=== PATIENT | male | born 1990 | race Caucasian/White ===

== ENCOUNTER 2018-11-10 18:58 | Emergency (ER) | payer MEDICAID ==
[2018-11-10] MEDS ORDERED: Levofloxacin 500 MG Tab PO ONE (19:53)
[2018-11-10] MEDS ORDERED: traMADol 50 MG Tab PO ONE (19:53)
--- NOTE | 2018-11-10 19:58 | EDM.PDOC ---
ED HPI GENERAL MEDICAL PROBLEM - General Chief Complaint: Lower Extremity Injury/Pain Stated Complaint: SORE ON L FOOT Time Seen by Provider: 11/10/18 19:36 Source of Information: Reports: Patient History Limitations: Reports: No Limitations - History of Present Illness INITIAL COMMENTS - FREE TEXT/NARRATIVE: Ector comes to [facility] ED with a painful L foot. He is a Type I DM who developed a callous overlying the 5th MTP pad that earlier this month became tender and swollen. The provider in [place] dispensed Keflex 500 mg tid and soaks, but the tenderness and drainage have not subsided. He is now relocated to [place], and requesting managment. Right Feet Pain Score (Numeric/FACES): 9 - Related Data Allergies Allergy/AdvReac Type Severity Reaction Status Date / Time amoxicillin [Amoxicillin] Allergy Hives Verified 11/10/18 19:16 Home Meds: Home Meds Insulin NPH/Insulin Reg,Human [Novolin 70-30] 43 units SUBCUT BEDTIME 11/10/18 [ History] Insulin NPH/Insulin Reg,Human [Novolin 70-30] 45 units SUBCUT DAILY 11/10/18 [ History] Rivaroxaban [Xarelto] 20 mg PO DAILY 11/10/18 [History] Past Medical History HEENT History: Reports: Other (See Below) Other HEENT History: [place] teeth removed. Respiratory History: Reports: PE Gastrointestinal History: Reports: Other (See Below) Other Gastrointestinal History: Gastric reflux. Musculoskeletal History: Reports: Other (See Below) Other Musculoskeletal History: Prior wrist fracture. Right knee problems. Psychiatric History: Reports: Depression, Other (See Below) Other Psychiatric History: Tylenol overdose. Endocrine/Metabolic History: Reports: IDDM - Past Surgical History Musculoskeletal Surgical History: Reports: Other (See Below) Other Musculoskeletal Surgeries/Procedures:: amputation of right 5th toe Social & Family History - Tobacco Use Smoking Status *Q: Never Smoker - Caffeine Use Caffeine Use: Reports: Soda - Recreational Drug Use Recreational Drug Use: No - Living Situation & Occupation Living situation: Reports: Single Occupation: Disabled Review of Systems - Review of Systems Review Of Systems: ROS reveals no pertinent complaints other than HPI. ED EXAM, GENERAL - Physical Exam Exam: See Below Exam Limited By: No Limitations General Appearance: Alert, WD/WN, Anxious, Mild Distress Head: Normocephalic Neck: Normal Inspection, Supple, Non-Tender, Full Range of Motion Respiratory/Chest: Lungs Clear, Normal Breath Sounds Cardiovascular: Regular Rate, Rhythm, No Murmur GI/Abdominal: Normal Bowel Sounds, Soft, Non-Tender, No Organomegaly, No Distention, No Mass (Male) Exam: Deferred Rectal (Males) Exam: Deferred Back Exam: Normal Inspection Extremities: Redness (L foot: mild swelling in proximity to the MTP pad of 5th toe revealing a callous with some central drainage, WC obtained. There is exquisite tenderness to any pressure. ) Neurological: Alert, Oriented, CN II-XII Intact, Normal Cognition, No Motor/ Sensory Deficits Psychiatric: Normal Affect, Anxious Skin Exam: Warm, Dry, Other (callous L foot with suspected trophic ulcer) Lymphatic: No Adenopathy Course - Vital Signs Text/Narrative:: Ector remained stable at the [facility] ED. Last Recorded V/S: Last Vital Signs Temp 36.7 C 11/10/18 19:15 Pulse Resp 17 11/10/18 19:15 BP 127/87 11/10/18 19:15 Pulse Ox 99 11/10/18 19:15 - Orders/Labs/Meds Orders: Active Orders 24 hr Category Date Time Status CULTURE ROUTINE + SMEAR [RM] Stat Lab 11/10/18 19:52 Ordered Meds: Medications Discontinued Medications Generic Name Dose Route Start Last Admin Trade Name Triston PRN Reason Stop Dose Admin Levofloxacin 500 mg 11/10/18 19:53 11/10/18 20:13 Levaquin PO 11/10/18 19:54 500 mg ONETIME ONE Administration Tramadol HCl 50 mg 11/10/18 19:53 11/10/18 20:12 Ultram PO 11/10/18 19:54 50 mg ONETIME ONE Administration Departure - Departure Time of Disposition: 20:10 Disposition: Home, Self-Care 01 Condition: Fair Clinical Impression: Cellulitis of left foot excluding toes - Discharge Information *PRESCRIPTION DRUG MONITORING PROGRAM REVIEWED*: Not Applicable *COPY OF PRESCRIPTION DRUG MONITORING REPORT IN PATIENT RAFIQ: Not Applicable Referrals: David Aburto MD [Primary Care Provider] - Forms: ED Department Discharge Additional Instructions: Soak foot in hot soapy water tonight for at least 30 minutes and then apply dressing. Repeat soak in a.m. and get in to see a surgeon tomorrow either at [facility] (Dr. Mcmillan) or at [facility] (Dr. Dixon or Dr. Stevenson). - Problem List & Annotations (1) Cellulitis of left foot excluding toes SNOMED Code(s): 463977313 Code(s): L03.116 - CELLULITIS OF LEFT LOWER LIMB Status: Acute Current Visit: Yes Annotation/Comment:: I administered Levaquin 500 mg tab, hold Keflex, and see surgeon for debridement of callous tomorrow for suspected trophic ulceration. I also administered Tramadol 50 mg po for pain. - Problem List Review Problem List Initiated/Reviewed/Updated: Yes - My Orders Last 24 Hours: My Active Orders 11/10/18 19:52 CULTURE ROUTINE + SMEAR [RM] Stat - Assessment/Plan Last 24 Hours: My Active Orders 11/10/18 19:52 CULTURE ROUTINE + SMEAR [RM] Stat Plan: Follow up with surgeon tomorrow.
[2018-11-10 23:33] VITALS: BP 124/80
== END 2018-11-10 20:15 | disposition home or self-care (01) ==
LOC: FB.ED 18:58
DX: L03.116 Cellulitis of left lower limb (principal); E11.9 Type 2 diabetes mellitus without complications; F32.9 Major depressive disorder, single episode, unspecified; Z79.4 Long term (current) use of insulin; Z79.899 Other long term (current) drug therapy; Z88.1 Allergy status to other antibiotic agents
CPT/HCPCS: 87070; 87077; 87186; 87205; 99283; A9270-GY

== ENCOUNTER 2018-12-30 21:28 | Observation (INO) | payer MEDICAID ==
--- NOTE | 2018-12-30 22:59 | EDM.PDOC ---
ED HPI GENERAL MEDICAL PROBLEM - General Chief Complaint: Lower Extremity Injury/Pain Stated Complaint: TOE INFECTION Time Seen by Provider: 12/30/18 22:45 Source of Information: Reports: Patient History Limitations: Reports: No Limitations - History of Present Illness INITIAL COMMENTS - FREE TEXT/NARRATIVE: 28-year-old male who reports that he caught the toenail of the right fifth toe on his sock and avulsed the toenail 2 days ago. Since that time he has had increased pain, increased swelling and redness in the toe. Today he had drainage of pus from under the toenail. He rates his pain as an 10/10. It is a sharp, aching and throbbing pain. He has had no nausea or vomiting. But he has had a subjective fever. He reports his blood sugar was morning was 180-190. He has been able to eat and drink normally. He is having no trouble breathing. While he was in the emergency department, he developed advancing on the top of the foot to his right lower leg just above the ankle. There are no other associated signs or symptoms. There are no other modifying factors. 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) (Nothing) right little toe Pain Score (Numeric/FACES): 8 - Related Data Allergies Allergy/AdvReac Type Severity Reaction Status Date / Time amoxicillin [Amoxicillin] Allergy Hives Verified 11/10/18 19:16 Home Meds: Home Meds Admelog Solostar ASDIRECTED 12/30/18 [History] Insulin Glargine,Hum.Rec.Anlog [Jacquelinaglbri Zheng U-100] 25 unit SQ BID 12/30/18 [History] Past Medical History Respiratory History: Reports: PE (In past, not on anticoagulation at present.) Gastrointestinal History: Reports: GERD Musculoskeletal History: Reports: Other (See Below) Other Musculoskeletal History: Prior wrist fracture. Right knee problems. Psychiatric History: Reports: Anxiety, Depression, Other (See Below) Other Psychiatric History: Tylenol overdose. Endocrine/Metabolic History: Reports: IDDM - Past Surgical History HEENT Surgical History: Reports: Oral Surgery ([place] teeth extraction) Musculoskeletal Surgical History: Reports: Other (See Below) Other Musculoskeletal Surgeries/Procedures:: amputation of left 5th toe Social & Family History - Tobacco Use Smoking Status *Q: Unknown Ever Smoked (Nonsmoker) - Caffeine Use Caffeine Use: Reports: Soda - Alcohol Use Alcohol Use History: Yes Alcohol Use Frequency: Rarely - Living Situation & Occupation Living situation: Reports: Single Occupation: Disabled Social History Comment: Recently moved back to [place]. He lives with a roommate. He is here with his mother. Review of Systems - Review of Systems Review Of Systems: See Below Constitutional: Reports: Fever Eyes: Reports: No Symptoms Ears: Reports: No Symptoms Nose: Reports: No Symptoms Mouth/Throat: Reports: No Symptoms Respiratory: Reports: No Symptoms Cardiovascular: Reports: No Symptoms GI/Abdominal: Reports: No Symptoms Genitourinary: Reports: No Symptoms Musculoskeletal: Reports: Other (Right fifth toe pain) Skin: Reports: Erythema (Right fifth toe with pus from avulsed nail area. The patient has erythema to the top of his right foot) Neurological: Reports: No Symptoms Psychiatric: Reports: No Symptoms ED EXAM, GENERAL - Physical Exam Exam: See Below Exam Limited By: No Limitations General Appearance: Alert, WD/WN, Moderate Distress Eye Exam: Bilateral Eye: EOMI, Normal Inspection, PERRL Ears: Normal External Exam, Hearing Grossly Normal Nose: Normal Inspection, Normal Mucosa Throat/Mouth: Normal Inspection, Normal Oropharynx, Normal Voice, No Airway Compromise Head: Atraumatic, Normocephalic Neck: Normal Inspection, Supple, Non-Tender, Full Range of Motion Respiratory/Chest: No Respiratory Distress, Lungs Clear, Normal Breath Sounds, No Accessory Muscle Use, Chest Non-Tender Cardiovascular: Normal Peripheral Pulses, No Edema, No JVD, Tachycardia (Mild) Peripheral Pulses: 2+: Radial (L), Radial (R), Dorsalis Pedis (L), Dorsalis Pedis (R) GI/Abdominal: Normal Bowel Sounds, Soft, Non-Tender, No Distention Back Exam: Normal Inspection Extremities: Normal Range of Motion, Normal Capillary Refill, Redness (With purulence from avulsed right fifth toenail) Neurological: Alert, Oriented, CN II-XII Intact, Normal Cognition, No Motor/ Sensory Deficits Psychiatric: Normal Affect Skin Exam: Warm, Dry, Erythema (And lymphangitic streak emanating from a fifth toe and going up top of foot to just above go.), Other (The left great toe also has some erythema and mild bloody discharge from the medial aspect of the toe nail area. No advancing cellulitis here.) Course - Vital Signs Last Recorded V/S: Last Vital Signs Temp 37.2 C 12/30/18 21:50 Pulse 107 H 12/30/18 21:50 Resp 20 12/30/18 21:50 BP 140/89 12/30/18 21:50 Pulse Ox 99 12/30/18 21:50 - Orders/Labs/Meds Orders: Active Orders 24 hr Category Date Time Status Patient Status Manage Transfer [TRANSFER] Routine ADT 12/31/18 00:16 Active Intake and Output [RC] QSHIFT Care 12/31/18 00:19 Active Pulse Oximetry [RC] PRN Care 12/31/18 00:19 Active Up ad Hilda [RC] ASDIRECTED Care 12/31/18 00:18 Active VTE/DVT Education [RC] Click to Edit Care 12/31/18 00:19 Active Vital Signs [RC] Q4H Care 12/31/18 00:19 Active Heart Healthy Diet [DIET] Diet 12/31/18 Breakfast Active Foot Comp Min 3V Rt [CR] Stat Exams 12/30/18 22:58 Taken BASIC METABOLIC PANEL,BMP [CHEM] AM Lab 12/31/18 05:11 Ordered CBC WITH AUTO DIFF [HEME] AM Lab 12/31/18 05:11 Ordered CULTURE BLOOD [BC] Urgent Lab 12/31/18 00:25 Received CULTURE BLOOD [BC] Urgent Lab 12/31/18 00:30 Received CULTURE ROUTINE + SMEAR [RM] Stat Lab 12/31/18 00:09 Ordered Acetaminophen/HYDROcodone [[place] 325-7.5 MG] Med 12/31/18 00:18 Active 1 tab PO Q4H PRN Enoxaparin [Lovenox] Med 12/31/18 00:30 Active 40 mg SUBCUT Q24H Sodium Chloride 0.9% [Saline Flush] Med 12/31/18 00:10 Active 10 ml FLUSH ASDIRECTED PRN ceFAZolin [Ancef] 2 gm Med 12/31/18 00:15 Active Premix Bag 1 bag IV Q8H Blood Culture x2 Reflex Set [OM.PC] Urgent Oth 12/31/18 00:10 Ordered DVT/VTE Prophylaxis Reflex [OM.PC] Per Unit Routine Oth 12/31/18 00:19 Ordered Peripheral IV Insertion Adult [OM.PC] Routine Oth 12/31/18 00:10 Ordered Resuscitation Status Routine Resus Stat 12/31/18 00:18 Ordered Medication Orders Hydrocodone Bitart/Acetaminophen ([place] 325-7.5 Mg) 1 tab PO Q4H PRN PRN Reason: Moderate pain Enoxaparin Sodium (Lovenox) 40 mg SUBCUT Q24H [facility] Cefazolin Sodium/Dextrose 2 gm (/ Premix) 50 mls @ 100 mls/hr IV Q8H [facility] Insulin Human Lispro (Humalog) 0 unit SUBCUT QID [facility]; Protocol Sodium Chloride (Saline Flush) 10 ml FLUSH ASDIRECTED PRN PRN Reason: Keep Vein Open Labs: Laboratory Tests 12/30/18 12/30/18 12/30/18 Range/Units 23:11 23:11 23:11 WBC 10.6 (4.5-12.0) X10-3/uL RBC 4.91 (4.30-5.75) x10(6)uL Hgb 15.0 (13.5-17.8) g/dL Hct 43.8 (30.0-51.3) % MCV 89.2 (80-96) fL MCH 30.5 (27.7-33.6) pg MCHC 34.1 (32.2-35.4) g/dL RDW 12.3 (11.5-15.5) % Plt Count 209 (125-369) X10(3)uL MPV 8.6 (7.4-10.4) fL Neut % (Auto) 73.9 (46-82) % Lymph % (Auto) 16.4 (13-37) % [place] % (Auto) 6.5 (4-12) % Eos % (Auto) 2 (1.0-5.0) % Baso % (Auto) 1 (0-2) % Neut # (Auto) 7.9 (1.6-8.3) # Lymph # (Auto) 1.7 (0.6-5.0) # [place] # (Auto) 0.7 (0.0-1.3) # Eos # (Auto) 0.2 (0.0-0.8) # Baso # (Auto) 0.1 (0.0-0.2) # Sodium 137 (135-145) mmol/L Potassium 4.0 (3.5-5.3) mmol/L Chloride 100 (100-110) mmol/L Carbon Dioxide 27 (21-32) mmol/L BUN 15 (7-18) mg/dL Creatinine 0.8 (0.70-1.30) mg/dL Est Cr Clr Drug Dosing 135.38 mL/min Estimated GFR (MDRD) > 60 (>60) BUN/Creatinine Ratio 18.8 (9-20) Glucose 442 H* (80-116) mg/dL Calcium 9.3 (8.6-10.2) mg/dL C-Reactive Protein 14.8 H* (0.5-0.9) mg/dL Meds: Medications Generic Name Dose Route Start Last Admin Trade Name Freq PRN Reason Stop Dose Admin Hydrocodone Bitart/Acetaminophen 1 tab 12/31/18 00:18 [place] 325-7.5 Mg PO Q4H PRN Moderate pain Enoxaparin Sodium 40 mg 12/31/18 00:30 Lovenox SUBCUT Q24H [facility] Cefazolin Sodium/Dextrose 2 gm 50 mls @ 100 mls/hr 12/31/18 00:15 / Premix IV Q8H [facility] Insulin Human Lispro 0 unit 12/31/18 09:00 Humalog SUBCUT QID [facility] Protocol Sodium Chloride 10 ml 12/31/18 00:10 Saline Flush FLUSH ASDIRECTED PRN Keep Vein Open Discontinued Medications Generic Name Dose Route Start Last Admin Trade Name Freq PRN Reason Stop Dose Admin Insulin Human Lispro 12 unit 12/31/18 00:36 12/31/18 00:38 Humalog SUBCUT 12/31/18 00:37 12 unit ONETIME ONE Administration Insulin Human Regular 12 unit 12/31/18 00:14 Humulin R SUBCUT 12/31/18 00:15 ONETIME ONE Insulin Human Regular 0 unit 12/31/18 09:00 Humulin R SUBCUT QID [facility] Protocol - Radiology Interpretation Free Text/Narrative:: Right foot x-ray shows no definite fracture. There is no subcutaneous air. - Re-Assessments/Exams Free Text/Narrative Re-Assessment/Exam: 12/31/18 00:05: The patient's blood tests support an infectious process. His blood sugar is elevated. The patient has advancing cellulitis on his right foot from his right fifth toe infection. The redness has advanced while he has been in the emergency department. With his history of diabetes that is not really well controlled and his previous left foot infection which led to amputation of his left fifth toe, I feel that he will need admission for IV antibiotics and good wound care. In addition he also has an area on his great toe that is also erythematous but without advancing cellulitis at this point and wound care will be provided for this toe as well. I have discussed this with the patient and his mother and they are in agreement with the plans for admission. I do not feel the patient's plan of care could be safely accomplished as an outpatient as there is significant morbidity and possible loss of limb or function with this infection. I have placed interim admission orders. Dr. Oshea will assume care of patient in the morning. Departure - Departure Time of Disposition: 00:45 Disposition: Admitted As Inpatient 68 Condition: Fair Clinical Impression: Cellulitis of right foot, Acute lymphangitis of foot Diabetes mellitus, insulin dependent (IDDM), uncontrolled Qualifiers: Glycemic state: with hyperglycemia Qualified Code(s): E10.65 - Type 1 diabetes mellitus with hyperglycemia - Discharge Information - My Orders Last 24 Hours: My Active Orders 12/30/18 22:58 Foot Comp Min 3V Rt [CR] Stat 12/31/18 00:09 CULTURE ROUTINE + SMEAR [RM] Stat 12/31/18 00:10 Sodium Chloride 0.9% [Saline Flush] 10 ml FLUSH ASDIRECTED PRN Blood Culture x2 Reflex Set [OM.PC] Urgent Peripheral IV Insertion Adult [OM.PC] Routine 12/31/18 00:15 ceFAZolin [Ancef] 2 gm Premix Bag 1 bag IV Q8H 12/31/18 00:16 Patient Status Manage Transfer [TRANSFER] Routine 12/31/18 00:18 Up ad Hilda [RC] ASDIRECTED Acetaminophen/HYDROcodone [[place] 325-7.5 MG] 1 tab PO Q4H PRN Resuscitation Status Routine 12/31/18 00:19 Intake and Output [RC] QSHIFT Pulse Oximetry [RC] PRN VTE/DVT Education [RC] Click to Edit Vital Signs [RC] Q4H DVT/VTE Prophylaxis Reflex [OM.PC] Per Unit Routine 12/31/18 00:25 CULTURE BLOOD [BC] Urgent 12/31/18 00:30 CULTURE BLOOD [BC] Urgent Enoxaparin [Lovenox] 40 mg SUBCUT Q24H 12/31/18 05:11 BASIC METABOLIC PANEL,BMP [CHEM] AM CBC WITH AUTO DIFF [HEME] AM 12/31/18 Breakfast Heart Healthy Diet [DIET] - Assessment/Plan Last 24 Hours: My Active Orders 12/30/18 22:58 Foot Comp Min 3V Rt [CR] Stat 12/31/18 00:09 CULTURE ROUTINE + SMEAR [RM] Stat 12/31/18 00:10 Sodium Chloride 0.9% [Saline Flush] 10 ml FLUSH ASDIRECTED PRN Blood Culture x2 Reflex Set [OM.PC] Urgent Peripheral IV Insertion Adult [OM.PC] Routine 12/31/18 00:15 ceFAZolin [Ancef] 2 gm Premix Bag 1 bag IV Q8H 12/31/18 00:16 Patient Status Manage Transfer [TRANSFER] Routine 12/31/18 00:18 Up ad Hilda [RC] ASDIRECTED Acetaminophen/HYDROcodone [[place] 325-7.5 MG] 1 tab PO Q4H PRN Resuscitation Status Routine 12/31/18 00:19 Intake and Output [RC] QSHIFT Pulse Oximetry [RC] PRN VTE/DVT Education [RC] Click to Edit Vital Signs [RC] Q4H DVT/VTE Prophylaxis Reflex [OM.PC] Per Unit Routine 12/31/18 00:25 CULTURE BLOOD [BC] Urgent 12/31/18 00:30 CULTURE BLOOD [BC] Urgent Enoxaparin [Lovenox] 40 mg SUBCUT Q24H 12/31/18 05:11 BASIC METABOLIC PANEL,BMP [CHEM] AM CBC WITH AUTO DIFF [HEME] AM 12/31/18 Breakfast Heart Healthy Diet [DIET]
[2018-12-31] MEDS ORDERED: Sodium Chloride 0.9% 10 ML Syringe FLUSH PRN (00:10)
[2018-12-31] MEDS ORDERED: Insulin Regular, Human 100 Units/ML 3 ML Vial SUBCUT ONE (00:14)
[2018-12-31] MEDS ORDERED: Enoxaparin 30 MG/0.3 ML Syringe SUBCUT SCH (00:30)
[2018-12-31] MEDS ORDERED: Insulin Lispro 100 Unit/ML 3 ML KwikPen SUBCUT ONE (00:36)
[2018-12-31] MEDS: ceFAZolin 2 GM in Premix Bag 1 BAG IV SCH ×3 (00:51→16:35)
[2018-12-31] MEDS ORDERED: Mupirocin Oint 22 GM Tube TOP SCH (01:15)
[2018-12-31] MEDS: Acetaminophen/HYDROcodone 325-7.5 MG Tab PO PRN ×2 (02:03→13:14)
[2018-12-31] MEDS: Bacitracin Oint 28.35 GM Tube TOP SCH ×2 (04:00→13:08)
[2018-12-31] MEDS ORDERED: Insulin Regular, Human 100 Units/ML 3 ML Vial SUBCUT SCH ×2 (07:30→09:00)
[2018-12-31] MEDS ORDERED: Insulin Glargine,Human Rec. Analog 100 Units/ML 3 ML Pen SUBCUT SCH (09:00)
--- NOTE | 2018-12-31 12:40 | HP ---
ADMISSION DATE: 12/31/2018 History is from the patient. CHIEF COMPLAINT: Toe infection. HISTORY OF PRESENT ILLNESS: Ector is a 28-year-old insulin-dependent type 1 diabetic, who was diagnosed at age 20 with a blood sugar of 900. He has been managing his insulin with basal and bolus insulin, but has had poor control with his last A1c being 12. According to the patient, he hooked his toenail on his right little toe with a sock. He has diabetic neuropathy and did not feel pain, but he noticed significant discharge on his sock next day and a foul odor. He also had felt feverish and chills. He went to the emergency room where he was found to have an infection in the little toenail bed. His residual toenail was removed. He has also had drainage from the left great toe, but no pain as mentioned because of his neuropathy. He was seen in the emergency room. Toes were re-dressed, and he was given IV antibiotics. He was admitted to the hospital. This morning, he feels better. He is afebrile without fever or chills. He has been given insulin in boluses and his blood sugars have come down to the 200 range. PAST MEDICAL HISTORY: Diabetes type 1, eight years. He has also had wisdom tooth extraction and a remote right wrist fracture as a child that healed satisfactorily. He has diabetic peripheral neuropathy. He denies any diabetic vision changes. He has a history of depression as well. He developed DVT after previous toe removal. PAST SURGICAL HISTORY: Includes removal of his left little toe for infection. MEDICATIONS: 1. Basaglar 25 units at bedtime. 2. NovoLog sliding scale q.i.d. mealtime and bedtime. Other medications: 1. Gabapentin 300 mg t.i.d. 2. Lexapro 10 mg daily. 3. Xarelto 20 mg daily. ALLERGIES: Amoxacillin caused hives. HABITS: Nonsmoker. Rare alcohol. Eight to 10 servings of caffeine per day. No other drugs. FAMILY AND SOCIAL HISTORY: The patient's father is aged 50 and healthy. Mother is 49 and healthy. He has one sister, also healthy. He is single. Grew up and lives in [place]. He is currently unemployed. REVIEW OF SYSTEMS: GENERAL: No seizure, syncope, or recent significant weight change. SKIN: Negative for rash other than the toe problems. HEENT: No recent changes in hearing or vision. No sore throat or URI. No cough or purulent sputum. No chest pain or palpitations. No abdominal pain, nausea, or diarrhea. No swelling or skin rash. PHYSICAL EXAMINATION: GENERAL: He is alert and comfortable. SKIN: Shows a clean avulsed right little toe nail and a slight ulcered area to left tip of his left great toe. There is very slight erythema of the foot, but no obvious ascending lymphangitis on either foot. He has old excoriations over his back from acne scars. HEENT: TMs are clear. Pupils are equal and reactive. Oropharynx clear. NECK: Supple. Thyroid is normal. LUNGS: Clear to the bases. BACK: Straight, nontender. HEART: Regular without murmur or gallop. ABDOMEN: Normal bowel sounds. Soft and nontender. EXTREMITIES: Show good pulses. Absent sensation on the feet. LABORATORY: White count 10,600, hemoglobin 15. Glucose initially 442. CRP 14.8. Creatinine 0.8. ASSESSMENT: 1. Cellulitis of right toe post traumatic nail avulsion. 2. Type 1 diabetes, uncontrolled. 3. Diabetic peripheral neuropathy. 4. History of deep venous thrombosis, on Xarelto. 5. Depression. PLAN: We will continue his IV Ancef and may discharge him later today on oral antibiotic if stable for followup as an outpatient. /[id number] TIM/ANDREW
[2018-12-31] MEDS: Insulin Lispro 100 Unit/ML 3 ML KwikPen SUBCUT SCH ×3 (13:06→17:14)
[2018-12-31] MEDS ORDERED: Cephalexin 500 MG Cap PO SCH ×2 (16:00→21:00)
[2018-12-31 17:43] VITALS: BP 118/71
[2018-12-31] MEDS ORDERED: Gabapentin 300 MG Cap PO SCH ×2 (21:00)
[2019-01-01] MEDS ORDERED: Escitalopram 10 MG Tab PO SCH (09:00)
--- NOTE | 2019-01-02 15:34 | CR ---
INDICATION: Right 5th toe pain, redness and swelling - diabetic. RIGHT FOOT: Three views of the right foot revealed a benign bone island at the distal metaphysis of the 4th metatarsal. A fracture, dislocation, or other acute bone or joint abnormality was not identified. Overall bone density appeared to be normal. MTDD
--- NOTE | 2019-01-03 08:08 | DISCH ---
DISCHARGE DATE: 12/31/2018 PRIMARY FINAL DIAGNOSIS: 1. Cellulitis right little toe and left great toe. 2. Type 1 insulin-dependent diabetes mellitus, uncontrolled. 3. Diabetic peripheral neuropathy, feet. 4. Remote history of deep vein thrombosis, now off anticoagulation. 5. Depression. OPERATIONS: None. COMPLICATIONS: None. SUMMARY: Ector is a 28-year-old young man with uncontrolled type 1 diabetes. He came in a day after traumatically avulsing his right little toenail. It subsequently got infected, and he was seen in the emergency room, admitted to acute care, and started on IV antibiotics. The patient received 2 g of Ancef IV every 8 hours. His vital signs remained quite stable. His insulin was resumed, but Accu-Cheks were up to 300 range. He was given sliding scale insulin while here. By the evening of 12/31/2018, he was feeling improved, but tired. He was afebrile. His foot showed no sign of ascending lymphangitis, and he was tolerating p.o. well. He is discharged in stable condition to continue medications as follows: 1. Cephalexin 500 mg t.i.d. x7 days. 2. Gabapentin 300 mg at bedtime. 3. Glargine insulin 25 units b.i.d. 4. Insulin lispro sliding scale q.i.d. a.c. and bedtime. 5. Lexapro 10 mg daily. 6. Tylenol p.r.n. He will use bacitracin topically to his toe lesions p.r.n. He is asked to follow up with Dr. Velasco from Podiatry at [facility] during his next visit to [place] and have a routine visit with Dr. Aburto in 2 weeks. Follow up sooner on a p.r.n. basis. /[id number] TIM/ANDREW
== END 2018-12-31 18:00 | disposition home or self-care (01) ==
LOC: FB.ED 21:28 → FB.MS 12-31 00:25
PROVIDERS: ADMIT Emergency Medicine; ATTEND Family Medicine
DX: L03.032 Cellulitis of left toe (principal); L03.031 Cellulitis of right toe; E10.65 Type 1 diabetes mellitus with hyperglycemia; E10.42 Type 1 diabetes mellitus with diabetic polyneuropathy; F32.9 Major depressive disorder, single episode, unspecified; Z88.0 Allergy status to penicillin; Z86.718 Personal history of other venous thrombosis and embolism; Z79.01 Long term (current) use of anticoagulants; Z79.899 Other long term (current) drug therapy
CPT/HCPCS: 11750; 36415; 73630; 80048; 82962; 85025; 86140; 87040; 87070; 87077; 87186; 87205; 96365; 96366; 96372; 99284; A9270; G0378; J0690; J1650; J1815

== ENCOUNTER 2019-02-05 09:17 | Emergency (ER) | payer MEDICAID ==
[2019-02-05] MEDS ORDERED: Sodium Chloride 0.9% 10 ML Syringe FLUSH PRN (09:37)
[2019-02-05] MEDS ORDERED: Morphine 4 MG/ML Syringe IVPUSH ONE (09:39)
[2019-02-05] MEDS ORDERED: Sodium Chloride 0.9% 1,000 ML IV ONE ×2 (09:39→11:06)
[2019-02-05] MEDS ORDERED: Ondansetron 4 MG/2 ML SDV IVPUSH ONE (09:39)
[2019-02-05] MEDS ORDERED: Sodium Chloride 0.9% 1,000 ML IV SCH (09:45)
--- NOTE | 2019-02-05 09:46 | EDM.PDOC ---
ED HPI GENERAL MEDICAL PROBLEM - General Stated Complaint: CHEST PAIN Time Seen by Provider: 02/05/19 09:35 Source of Information: Reports: Patient History Limitations: Reports: No Limitations - History of Present Illness INITIAL COMMENTS - FREE TEXT/NARRATIVE: 28-year-old male with onset of diarrhea on and that has been present and worsening since that time. He has had onset of vomiting this morning with left-sided chest pain and left arm numbness at approximate 7:30 AM. The pain has been constant and unrelenting. He rates the pain as a 7/10. It is a sharp pain. It is worse with breathing. Vomiting 4. No diarrhea today but 20+ episodes of diarrhea yesterday. He denies any blood in either his emesis or his stool. Decreased urine output today. He feels short of breath. He also feels dizzy and weak. No fevers but he has felt hot and cold. He has not been taking much by mouth. He reports that he has been taking his insulin. He has a past medical history of pulmonary embolism in the past (not currently on anticoagulation) and diabetes mellitus with relatively poor control. There are no other associated signs or symptoms. There are no other modifying factors. 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) (Nothing) left side chest Pain Score (Numeric/FACES): 7 - Related Data Allergies Allergy/AdvReac Type Severity Reaction Status Date / Time amoxicillin [Amoxicillin] Allergy Hives Verified 02/05/19 09:22 Home Meds: Home Meds Insulin Lispro [Humalog] 0 unit SUBCUT QID pen 12/31/18 [Rx] Admelog units SQ ASDIRECTED 02/05/19 [History] Gabapentin [Neurontin] 900 mg PO BEDTIME 02/05/19 [History] Insulin Glargine,Hum.Rec.Anlog [Basaglar Kwikpen U-100] 30 unit SQ BID 02/05/19 [History] Mirtazapine 15 mg PO BEDTIME 02/05/19 [History] Ondansetron [Zofran ODT] 4 mg PO Q6H PRN #8 tab.dis 02/05/19 [Rx] Past Medical History Other HEENT History: Solen teeth removed. Cardiovascular History: Reports: Blood Clots/VTE/DVT, Other (See Below) Other Cardiovascular History: PE last apr 2018 Respiratory History: Reports: PE Gastrointestinal History: Reports: GERD, Other (See Below) Other Gastrointestinal History: barrets esophgeal type of gerd Musculoskeletal History: Reports: Arthritis, Other (See Below) Other Musculoskeletal History: Prior wrist fracture. Right and left knee problems. Neurological History: Reports: Neuropathy, Diabetic Psychiatric History: Reports: Anxiety, Depression, Psych Hospitalization(s), Suicide Attempt, Other (See Below) Other Psychiatric History: Tylenol overdose. Endocrine/Metabolic History: Reports: IDDM Hematologic History: Reports: Other (See Below) Other Hematologic History: hx blood clots Immunologic History: Reports: None - Infectious Disease History Infectious Disease History: Reports: None - Past Surgical History HEENT Surgical History: Reports: Oral Surgery Respiratory Surgical History: Reports: Other (See Below) Other Respiratory Surgeries/Procedures: stents per groin to remove PEs and stents removed after GI Surgical History: Reports: Colonoscopy, EGD Male Surgical History: Reports: Circumcision Endocrine Surgical History: Reports: None Musculoskeletal Surgical History: Reports: Other (See Below) Other Musculoskeletal Surgeries/Procedures:: amputation of left 5th toe Dermatological Surgical History: Reports: None Social & Family History - Tobacco Use Smoking Status *Q: Unknown Ever Smoked (Nonsmoker) - Caffeine Use Caffeine Use: Reports: Coffee, Energy Drinks, Soda - Alcohol Use Alcohol Use History: Yes Alcohol Use Frequency: Rarely - Living Situation & Occupation Living situation: Reports: Single Occupation: Disabled Social History Comment: Here with family member. ED ROS GENERAL - Review of Systems Review Of Systems: See Below Constitutional: Reports: No Symptoms HEENT: Reports: Other (Dry mouth) Respiratory: Reports: Shortness of Breath Cardiovascular: Reports: Chest Pain Endocrine: Reports: Fatigue GI/Abdominal: Reports: Diarrhea, Nausea, Vomiting Musculoskeletal: Reports: No Symptoms Skin: Reports: No Symptoms Neurological: Reports: Dizziness Hematologic/Lymphatic: Reports: No Symptoms Immunologic: Reports: No Symptoms ED EXAM, GENERAL - Physical Exam Exam: See Below Exam Limited By: No Limitations General Appearance: Alert, WD/WN, Moderate Distress Eye Exam: Bilateral Eye: EOMI, PERRL Ears: Normal External Exam Ear Exam: Bilateral Ear: Auricle Normal Nose: Normal Inspection, Normal Mucosa Throat/Mouth: Normal Voice, No Airway Compromise, Other (Dry mouth) Head: Atraumatic, Normocephalic Neck: Normal Inspection Respiratory/Chest: No Respiratory Distress, Lungs Clear, No Accessory Muscle Use , Chest Non-Tender Cardiovascular: Normal Peripheral Pulses, No Edema, No JVD, Tachycardia Peripheral Pulses: 2+: Radial (L), Radial (R) GI/Abdominal: Normal Bowel Sounds, Soft, Non-Tender, No Organomegaly, No Distention Back Exam: Normal Inspection Extremities: Normal Inspection, Normal Range of Motion, Normal Capillary Refill Neurological: Alert, Oriented, CN II-XII Intact, Normal Cognition, No Motor/ Sensory Deficits Skin Exam: Warm, Dry, Intact, Normal Color, No Rash EKG INTERPRETATION EKG Date: 02/05/19 Time: 09:42 Rhythm: Other (Sinus tachycardia) Rate (Beats/Min): 110 [place]: Normal P-Wave: Present QRS: Normal ST-T: Other (Early repolarization) QT: Normal Comparison: NA - No Prior EKG EKG Interpretation Comments: Sinus tachycardia with a rate of 110. There is some early repolarization. There is a normal axis. There are normal intervals. No old EKG for comparison. Course - Vital Signs Last Recorded V/S: Last Vital Signs Temp 36.6 C 02/05/19 09:17 Pulse 119 H 02/05/19 09:17 Resp 18 02/05/19 09:17 BP 135/94 H 02/05/19 09:17 Pulse Ox 100 02/05/19 09:17 - Orders/Labs/Meds Orders: Active Orders 24 hr Category Date Time Status Accu Check [Blood Glucose Check, Bedside] [RC] ONETIME Care 02/05/19 10:24 Active EKG Documentation Completion [RC] ASDIRECTED Care 02/05/19 09:38 Active Ang Chest [CT] Stat Exams 02/05/19 10:23 Taken Chest 1V Frontal [CR] Stat Exams 02/05/19 09:37 Taken Sodium Chloride 0.9% [Normal Saline] 1,000 ml Med 02/05/19 09:45 Active IV ASDIRECTED Sodium Chloride 0.9% [Saline Flush] Med 02/05/19 09:37 Active 10 ml FLUSH ASDIRECTED PRN Peripheral IV Insertion Adult [OM.PC] Routine Oth 02/05/19 09:37 Ordered EKG 12 Lead [EK] Routine Ther 02/05/19 09:37 Ordered Medication Orders Sodium Chloride (Normal Saline) 1,000 mls @ 250 mls/hr IV ASDIRECTED HARMEET Last Admin: 02/05/19 09:55 Dose: 250 mls/hr Sodium Chloride (Saline Flush) 10 ml FLUSH ASDIRECTED PRN PRN Reason: Keep Vein Open Last Admin: 02/05/19 09:53 Dose: 10 ml Labs: Laboratory Tests 02/05/19 02/05/19 02/05/19 Range/Units 09:50 09:50 09:50 WBC 10.7 (4.5-12.0) X10-3/uL RBC 5.50 (4.30-5.75) x10(6)uL Hgb 16.1 (13.5-17.8) g/dL Hct 47.8 (30.0-51.3) % MCV 86.9 (80-96) fL MCH 29.3 (27.7-33.6) pg MCHC 33.8 (32.2-35.4) g/dL RDW 12.0 (11.5-15.5) % Plt Count 244 (125-369) X10(3)uL MPV 8.0 (7.4-10.4) fL Neut % (Auto) 71.4 (46-82) % Lymph % (Auto) 21.1 (13-37) % Antelope % (Auto) 5.3 (4-12) % Eos % (Auto) 2 (1.0-5.0) % Baso % (Auto) 0 (0-2) % Neut # (Auto) 7.6 (1.6-8.3) # Lymph # (Auto) 2.3 (0.6-5.0) # Antelope # (Auto) 0.6 (0.0-1.3) # Eos # (Auto) 0.2 (0.0-0.8) # Baso # (Auto) 0.0 (0.0-0.2) # Sodium 132 L (135-145) mmol/L Potassium 4.2 (3.5-5.3) mmol/L Chloride 96 L D (100-110) mmol/L Carbon Dioxide 25 (21-32) mmol/L BUN 25 H D (7-18) mg/dL Creatinine 1.0 (0.70-1.30) mg/dL Est Cr Clr Drug Dosing 111.94 mL/min Estimated GFR (MDRD) > 60 (>60) BUN/Creatinine Ratio 25.0 H (9-20) Glucose 497 H* D (80-116) mg/dL Calcium 9.5 (8.6-10.2) mg/dL Total Bilirubin 0.5 (0.1-1.3) mg/dL AST 7 (5-25) IU/L ALT 20 (12-36) U/L Alkaline Phosphatase 199 H (56-112) IU/L Troponin I < 0.017 L (<0.017-0.056) ng/mL Total Protein 8.2 H (6.0-8.0) g/dL Albumin 4.0 (3.5-5.2) g/dL Globulin 4.2 g/dL Albumin/Globulin Ratio 1.0 Meds: Medications Generic Name Dose Route Start Last Admin Trade Name Freq PRN Reason Stop Dose Admin Sodium Chloride 1,000 mls @ 250 mls/hr 02/05/19 09:45 02/05/19 09:55 Normal Saline IV 250 mls/hr ASDIRECTED HARMEET Administration Sodium Chloride 10 ml 02/05/19 09:37 02/05/19 09:53 Saline Flush FLUSH 10 ml ASDIRECTED PRN Administration Keep Vein Open Discontinued Medications Generic Name Dose Route Start Last Admin Trade Name Freq PRN Reason Stop Dose Admin Sodium Chloride 1,000 mls @ 999 mls/hr 02/05/19 09:39 02/05/19 09:53 Normal Saline IV 02/05/19 10:39 999 mls/hr .BOLUS ONE Administration Sodium Chloride 1,000 mls @ 999 mls/hr 02/05/19 11:06 02/05/19 11:27 Normal Saline IV 02/05/19 12:06 999 mls/hr .BOLUS ONE Administration Insulin Human Lispro 10 unit 02/05/19 11:04 02/05/19 11:08 Humalog SUBCUT 02/05/19 11:05 10 unit ONETIME ONE Administration Iopamidol 75 ml 02/05/19 10:29 02/05/19 11:24 Isovue-370 (76%) IV 02/05/19 10:30 75 ml ONETIME ONE Administration Morphine Sulfate 4 mg 02/05/19 09:39 02/05/19 09:52 Morphine IVPUSH 02/05/19 09:40 4 mg ONETIME ONE Administration Morphine Sulfate Confirm 02/05/19 09:50 02/05/19 10:15 Morphine Administered 02/05/19 09:51 Not Given Dose 4 mg .ROUTE .STK-MED ONE Ondansetron HCl 4 mg 02/05/19 09:39 02/05/19 09:53 Zofran IVPUSH 02/05/19 09:40 4 mg ONETIME ONE Administration - Radiology Interpretation Free Text/Narrative:: Portable chest x-ray shows no acute disease. CTA of chest shows no evidence of pulmonary embolus or any other acute abnormality. - Re-Assessments/Exams Free Text/Narrative Re-Assessment/Exam: 02/05/19 10:05: Patient's pain has improved after the IV morphine. Nausea and vomiting has abated after the Zofran. Patient's heart rate is in the 90-100 range. IV normal saline is infusing. Portable chest x-ray shows no acute disease. Blood glucose is 497 prior to hydration. BUN/creatinine are normal. Secondary to the patient's pleuritic-type chest pain and history of PE, I will order a CT angiogram of the chest to check for PE. Awaiting for the 1 L normal saline bolus to be infused prior to doing this. 02/05/19 12:36: CTA of the patient's chest was negative for PE. He has received 2.5 L of normal saline IV. His blood sugar has decreased to 296. His heart rate is in the 80-90 range. He has no further nausea and has had no further diarrhea. He has been able to take ice chips well without any further emesis. His chest pain is markedly improved and he feels much better. I suspect his symptoms are due to a viral gastroenteritis and dehydration and he is ready for discharge. Departure - Departure Time of Disposition: 12:40 Disposition: Home, Self-Care 01 Condition: Good (Improved) Clinical Impression: Vomiting and diarrhea, Dehydration, Chest pain, non-cardiac Diabetes mellitus, insulin dependent (IDDM), uncontrolled Qualifiers: Glycemic state: with hyperglycemia Qualified Code(s): E10.65 - Type 1 diabetes mellitus with hyperglycemia - Discharge Information Prescriptions: Ondansetron [Zofran ODT] 4 mg PO Q6H PRN #8 tab.dis PRN Reason: Nausea or vomiting Instructions: Insulin Treatment for Diabetes Mellitus, Chest Wall Pain, Easy-to -Read, Dehydration, Adult, [id number], Nausea and Vomiting, Adult, Easy-to- Read, Diarrhea, Adult, [id number] Referrals: PCP,None [Primary Care Provider] - Additional Instructions: The CAT scan of your chest showed no evidence of blood clots or any other acute abnormality. Your blood tests were for the most part normal except for evidence of dehydration and your elevated blood sugar. You appear to have a viral intestinal infection causing your vomiting and diarrhea with dehydration. We have corrected your dehydration with IV fluids. You should rest. You should drink small amounts of fluids frequently. You should take probiotics or eat yogurt for your diarrhea. Medication as prescribed (Zofran 4 mg ODT). Follow your blood sugars closely and adjust your insulin as indicated/needed. Follow- up with your primary doctor. Back to the emergency department for trouble breathing, unrelenting vomiting, fever, inability to control your blood sugars are or any other concerning sign or symptom. - My Orders Last 24 Hours: My Active Orders 02/05/19 09:37 Chest 1V Frontal [CR] Stat Sodium Chloride 0.9% [Saline Flush] 10 ml FLUSH ASDIRECTED PRN Peripheral IV Insertion Adult [OM.PC] Routine EKG 12 Lead [EK] Routine 02/05/19 09:38 EKG Documentation Completion [RC] ASDIRECTED 02/05/19 09:45 Sodium Chloride 0.9% [Normal Saline] 1,000 ml IV ASDIRECTED 02/05/19 10:23 Ang Chest [CT] Stat 02/05/19 10:24 Accu Check [Blood Glucose Check, Bedside] [RC] ONETIME - Assessment/Plan Last 24 Hours: My Active Orders 02/05/19 09:37 Chest 1V Frontal [CR] Stat Sodium Chloride 0.9% [Saline Flush] 10 ml FLUSH ASDIRECTED PRN Peripheral IV Insertion Adult [OM.PC] Routine EKG 12 Lead [EK] Routine 02/05/19 09:38 EKG Documentation Completion [RC] ASDIRECTED 02/05/19 09:45 Sodium Chloride 0.9% [Normal Saline] 1,000 ml IV ASDIRECTED 02/05/19 10:23 Ang Chest [CT] Stat 02/05/19 10:24 Accu Check [Blood Glucose Check, Bedside] [RC] ONETIME
[2019-02-05] MEDS ORDERED: Iopamidol 755 Mg/ML 75 ML Bottle IV ONE (10:29)
[2019-02-05] MEDS ORDERED: Insulin Lispro 100 Unit/ML 3 ML KwikPen SUBCUT ONE (11:04)
[2019-02-05 16:15] VITALS: BP 116/75
--- NOTE | 2019-02-07 08:26 | CR ---
INDICATION: Chest pain. CHEST ONE VIEW: AP upright portable view of the chest 02/05/19 was compared with 04/27/14 and 01/14/14 revealing the heart to remain normal in size and shape. Mediastinum and bony thorax are unremarkable. Overlying EKG leads are noted. An active infiltrate or effusion was not identified. IMPRESSION: No active disease. Stable chest. MTDD
== END 2019-02-05 13:18 | disposition home or self-care (01) ==
LOC: FB.ED 09:17
DX: E86.0 Dehydration (principal); R11.2 Nausea with vomiting, unspecified; R07.89 Other chest pain; R19.7 Diarrhea, unspecified; E10.65 Type 1 diabetes mellitus with hyperglycemia; F41.9 Anxiety disorder, unspecified; F32.9 Major depressive disorder, single episode, unspecified; Z79.1 Long term (current) use of non-steroidal anti-inflammatories (NSAID); Z79.899 Other long term (current) drug therapy; Z88.1 Allergy status to other antibiotic agents
CPT/HCPCS: 36415; 71045; 71275; 80053; 84484; 85025; 93005; 96361; 96372; 96374; 96375; 99285; J1815; J2270; J2405; J7030; Q9967; 82962

== ENCOUNTER 2019-02-07 17:18 | Inpatient (IN) | payer MEDICAID ==
[2019-02-07] MEDS ORDERED: Sodium Chloride 0.9% 10 ML Syringe FLUSH PRN (18:25)
[2019-02-07] MEDS ORDERED: Sodium Chloride 0.9% 1,000 ML IV ONE (18:28)
[2019-02-07] MEDS ORDERED: Promethazine 25 MG in Sodium Chloride 0.9% 50 ML IV ONE (18:28)
--- NOTE | 2019-02-07 18:36 | EDM.PDOC ---
ED HPI GENERAL MEDICAL PROBLEM - General Chief Complaint: Gastrointestinal Problem Stated Complaint: DIARRHEA Time Seen by Provider: 02/07/19 18:15 Source of Information: Reports: Patient History Limitations: Reports: No Limitations - History of Present Illness INITIAL COMMENTS - FREE TEXT/NARRATIVE: 28-year-old male with diarrhea since of last week. He was seen by myself in the emergency department here at [facility] on 02/05/2019 secondary to left-sided chest pain and diarrhea with vomiting. He appeared to be somewhat dehydrated and was read with IV fluids. His workup which included a CT angiogram of the chest was unremarkable except for the dehydration. He seemed to be improved and was discharged. He reports that since that time he has had no further vomiting but he has had persisting diarrhea. He reports he had 19 loose stools today. There is been no blood in his stool. He does have diffuse abdominal pain that is a sharp and crampy type pain. He rates the pain as a 6/ 10. It is worse with palpation. He has been drinking liquids well but not eating. He has had subjective fevers with sweats and chills. He feels weak. He was seen at [facility] by Dr. Aburto and was sent here for further evaluation. He has had no trouble breathing. He's had no further chest pain. He has had decreased urine output. There are no other associated signs or symptoms. There are no other modifying factors. 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(s) (He has taken 3 Imodium today without any apparent relief of his symptoms.) Mid-abdomen Pain Score (Numeric/FACES): 5 - Related Data Allergies Allergy/AdvReac Type Severity Reaction Status Date / Time amoxicillin [Amoxicillin] Allergy Hives Verified 02/07/19 18:00 Home Meds: Home Meds Admelog 2 - 12 units SQ QID 02/05/19 [History] Gabapentin [Neurontin] 900 mg PO BEDTIME 02/05/19 [History] Insulin Glargine,Hum.Rec.Anlog [Basaglar Kwikpen U-100] 30 unit SQ BID 02/05/19 [History] Mirtazapine 15 mg PO BEDTIME 02/05/19 [History] Ondansetron [Zofran ODT] 4 mg PO Q6H PRN #8 tab.dis 02/05/19 [Rx] Escitalopram [Lexapro] 20 mg PO DAILY 02/07/19 [History] Triamcinolone Acetonide [Triamcinolone Acetonide 0.1% Crm] 1 appful TOP BID [History] Past Medical History Cardiovascular History: Reports: Blood Clots/VTE/DVT, Other (See Below) Other Cardiovascular History: PE last apr 2018 Respiratory History: Reports: PE Gastrointestinal History: Reports: GERD, Other (See Below) Other Gastrointestinal History: barrets esophgeal type of gerd Musculoskeletal History: Reports: Arthritis, Other (See Below) Other Musculoskeletal History: Prior wrist fracture. Right and left knee problems. Osteomyelitis L 5th toe. Neurological History: Reports: Neuropathy, Diabetic Psychiatric History: Reports: Anxiety, Depression, Psych Hospitalization(s), Suicide Attempt, Other (See Below) Other Psychiatric History: Tylenol overdose. Endocrine/Metabolic History: Reports: IDDM Other Endocrine/Metabolic History: diabetic - Infectious Disease History Infectious Disease History: Reports: None - Past Surgical History HEENT Surgical History: Reports: Oral Surgery Respiratory Surgical History: Reports: Other (See Below) Other Respiratory Surgeries/Procedures: stents per groin to remove PEs and stents removed after GI Surgical History: Reports: Colonoscopy, EGD Musculoskeletal Surgical History: Reports: Amputation (Of left fifth toe) Dermatological Surgical History: Reports: None Social & Family History - Tobacco Use Smoking Status *Q: Former Smoker Years of Tobacco use: 2 Used Tobacco, but Quit: Yes Month/Year Tobacco Last Used: 2012 - Caffeine Use Caffeine Use: Reports: Coffee, Energy Drinks, Soda, Tea - Alcohol Use Alcohol Use History: No - Recreational Drug Use Recreational Drug Use: No - Living Situation & Occupation Living situation: Reports: Single Occupation: Disabled Social History Comment: He is here with his mother. ED ROS GENERAL - Review of Systems Review Of Systems: See Below Constitutional: Reports: Fever (Subjective), Chills HEENT: Reports: Other (Dry mouth) Respiratory: Reports: No Symptoms Cardiovascular: Reports: No Symptoms GI/Abdominal: Reports: Abdominal Pain, Diarrhea : Reports: Other (Decreased urine output) Musculoskeletal: Reports: No Symptoms Skin: Reports: No Symptoms Neurological: Reports: Dizziness Hematologic/Lymphatic: Reports: No Symptoms Immunologic: Reports: No Symptoms ED EXAM, GI/ABD - Physical Exam Exam: See Below Exam Limited By: No Limitations General Appearance: Alert, WD/WN, Moderate Distress Eyes: Bilateral: Normal Appearance, EOMI Ears: Normal External Exam Nose: Normal Inspection Throat/Mouth: Normal Voice, No Airway Compromise, Other (Dry mucous membranes) Head: Atraumatic, Normocephalic Neck: Normal Inspection, Supple, Non-Tender, Full Range of Motion Respiratory/Chest: No Respiratory Distress, Lungs Clear, Normal Breath Sounds, No Accessory Muscle Use, Chest Non-Tender Cardiovascular: Normal Peripheral Pulses, Regular Rate, Rhythm, No JVD GI/Abdominal Exam: Normal Bowel Sounds, Soft, No Mass, Tender (Diffusely tender. ). No: Rebound Back Exam: Normal Inspection, Full Range of Motion Extremities: Normal Inspection, Normal Range of Motion, Non-Tender, No Pedal Edema, Normal Capillary Refill Neurological: Alert, Oriented, CN II-XII Intact, Normal Cognition, Normal Gait, No Motor/Sensory Deficits Psychiatric: Normal Affect Skin Exam: Warm, Dry, Intact, Normal Color, No Rash Lymphatic: No Adenopathy Course - Vital Signs Last Recorded V/S: Last Vital Signs Temp 36.8 C 02/07/19 17:50 Pulse 92 02/07/19 17:50 Resp 18 02/07/19 17:50 BP 116/71 02/07/19 17:50 Pulse Ox 99 02/07/19 17:50 - Orders/Labs/Meds Orders: Active Orders 24 hr Category Date Time Status Orthostatic Vital Signs [RC] ASDIRECTED Care 02/07/19 18:27 Active AMYLASE [CHEM] Stat Lab 02/07/19 18:13 Received CDIFF TOXIN A+B GROUP [OP] Routine Lab 02/07/19 18:40 Received STOOL CULTURE Urgent Lab 02/07/19 18:40 Received UA W/MICROSCOPIC [URIN] Stat Lab 02/07/19 18:25 Ordered WHITE BLOOD CELLS (WBC), STOOL Urgent Lab 02/07/19 18:40 Received Sodium Chloride 0.9% [Normal Saline] 1,000 ml Med 02/07/19 18:28 Active IV .BOLUS Sodium Chloride 0.9% [Saline Flush] Med 02/07/19 18:25 Active 10 ml FLUSH ASDIRECTED PRN Peripheral IV Insertion Adult [OM.PC] Routine Oth 02/07/19 18:25 Ordered Medication Orders Sodium Chloride (Normal Saline) 1,000 mls @ 999 mls/hr IV .BOLUS ONE Stop: 02/07/19 19:28 Sodium Chloride (Saline Flush) 10 ml FLUSH ASDIRECTED PRN PRN Reason: Keep Vein Open Labs: Laboratory Tests 02/07/19 02/07/19 02/07/19 Range/Units 18:13 18:13 18:13 WBC 8.4 (4.5-12.0) X10-3/uL RBC 5.08 (4.30-5.75) x10(6)uL Hgb 14.9 (13.5-17.8) g/dL Hct 44.8 (30.0-51.3) % MCV 88.3 (80-96) fL MCH 29.4 (27.7-33.6) pg MCHC 33.3 (32.2-35.4) g/dL RDW 12.5 (11.5-15.5) % Plt Count 260 (125-369) X10(3)uL MPV 8.2 (7.4-10.4) fL Neut % (Auto) 66.1 (46-82) % Lymph % (Auto) 23.4 (13-37) % [place] % (Auto) 5.6 (4-12) % Eos % (Auto) 5 (1.0-5.0) % Baso % (Auto) 0 (0-2) % Neut # (Auto) 5.5 (1.6-8.3) # Lymph # (Auto) 2.0 (0.6-5.0) # [place] # (Auto) 0.5 (0.0-1.3) # Eos # (Auto) 0.4 (0.0-0.8) # Baso # (Auto) 0.0 (0.0-0.2) # Sodium 139 (135-145) mmol/L Potassium 3.5 (3.5-5.3) mmol/L Chloride 103 D (100-110) mmol/L Carbon Dioxide 24 (21-32) mmol/L BUN 15 D (7-18) mg/dL Creatinine 0.7 (0.70-1.30) mg/dL Est Cr Clr Drug Dosing 159.92 mL/min Estimated GFR (MDRD) > 60 (>60) BUN/Creatinine Ratio 21.4 H (9-20) Glucose 261 H D (80-116) mg/dL Calcium 9.0 (8.6-10.2) mg/dL Total Bilirubin 0.4 (0.1-1.3) mg/dL AST 8 D (5-25) IU/L ALT 16 D (12-36) U/L Alkaline Phosphatase 176 H (56-112) IU/L C-Reactive Protein 0.8 (0.5-0.9) mg/dL Total Protein 8.0 (6.0-8.0) g/dL Albumin 3.7 (3.5-5.2) g/dL Globulin 4.3 g/dL Albumin/Globulin Ratio 0.9 Meds: Medications Generic Name Dose Route Start Last Admin Trade Name Freq PRN Reason Stop Dose Admin Sodium Chloride 1,000 mls @ 999 mls/hr 02/07/19 18:28 Normal Saline IV 02/07/19 19:28 .BOLUS ONE Sodium Chloride 10 ml 02/07/19 18:25 Saline Flush FLUSH ASDIRECTED PRN Keep Vein Open Discontinued Medications Generic Name Dose Route Start Last Admin Trade Name Freq PRN Reason Stop Dose Admin Promethazine HCl 25 mg/ Sodium 51 mls @ 200 mls/hr 02/07/19 18:28 Chloride IV 02/07/19 18:43 ONETIME ONE - Re-Assessments/Exams Free Text/Narrative Re-Assessment/Exam: 02/07/19 19:27: Patient with diarrhea that has been persistent for the past 5 days, dehydration and diabetes that is not controlled. He will need IV fluid hydration more than can be done through the emergency department. He has essentially failed outpatient management of this problem and would benefit from admission with further IV fluids. I do not feel that the plan of care can be safely accomplished as an outpatient. The patient has not had an IV established as yet. Some laboratory tests are pending at this point. I have discussed this plan for admission with the patient. He is in agreement with this plan. I have also discussed patient's case with Dr. Weeks, ED physician coming on shift, and he will assume care of patient. Please see his note for any further details. Departure - Departure Time of Disposition: 19:27 Disposition: Refer to Observation Condition: Fair Clinical Impression: Dehydration, Failure of outpatient treatment Diarrhea Qualifiers: Diarrhea type: unspecified type Qualified Code(s): R19.7 - Diarrhea, unspecified Diabetes mellitus type 1, uncontrolled Qualifiers: Glycemic state: with hyperglycemia Qualified Code(s): E10.65 - Type 1 diabetes mellitus with hyperglycemia - Discharge Information Forms: ED Department Discharge - My Orders Last 24 Hours: My Active Orders 02/07/19 18:25 UA W/MICROSCOPIC [URIN] Stat Sodium Chloride 0.9% [Saline Flush] 10 ml FLUSH ASDIRECTED PRN Peripheral IV Insertion Adult [OM.PC] Routine 02/07/19 18:27 Orthostatic Vital Signs [RC] ASDIRECTED 02/07/19 18:28 Sodium Chloride 0.9% [Normal Saline] 1,000 ml IV .BOLUS 02/07/19 18:40 CDIFF TOXIN A+B GROUP [OP] Routine - Assessment/Plan Last 24 Hours: My Active Orders 02/07/19 18:25 UA W/MICROSCOPIC [URIN] Stat Sodium Chloride 0.9% [Saline Flush] 10 ml FLUSH ASDIRECTED PRN Peripheral IV Insertion Adult [OM.PC] Routine 02/07/19 18:27 Orthostatic Vital Signs [RC] ASDIRECTED 02/07/19 18:28 Sodium Chloride 0.9% [Normal Saline] 1,000 ml IV .BOLUS 02/07/19 18:40 CDIFF TOXIN A+B GROUP [OP] Routine
[2019-02-07] MEDS ORDERED: Non-Formulary Medication 1 Each (Triamcinolone Acetonide [Triamcinolone Acetonide 0.1% Crm TOP SCH (21:00)
[2019-02-07] MEDS: Insulin Glargine,Human Rec. Analog 100 Units/ML 3 ML Pen SUBCUT SCH (21:24)
[2019-02-07] MEDS: Mirtazapine 15 MG Tab PO SCH (21:27)
[2019-02-07] MEDS: Gabapentin 300 MG Cap PO SCH (21:27)
[2019-02-07] MEDS ORDERED: Atropine/Diphenoxylate 0.025-2.5 MG Tab PO PRN (22:29)
[2019-02-07] MEDS ORDERED: Sodium Chloride 0.9% 3,000 ML IV SCH (22:29)
--- NOTE | 2019-02-08 08:32 | PCM.HP ---
H&P History of Present Illness - General Date of Service: 02/08/19 Admit Problem/Dx: Admission Diagnosis/Problem Admission Diagnosis/Problem Diarrhea in adult patient Source of Information: Patient, EMS Notes Reviewed History Limitations: Reports: No Limitations - History of Present Illness Initial Comments - Free Text/Narative: This is a 28-year-old male patient with diabetes this had 1 week history of vomiting, fevers, chills multiple diarrhea stools. He denies any exposures, antibiotics or travel to a third world country. He was seen in the ER about a week ago given IV fluids and sent home. He saw his primary provider sent him over today because he was not getting any better. He is evaluated by the ER doctor felt that he failed outpatient therapy so he was admitted. He's had some abdominal cramping, fevers, chills, multiple diarrhea stools, decreased urine output, vomiting and nausea. He states that he's been evaluated for his diabetes in no one knows if it's type I or type II at this time. He's currently on long-acting insulin. Mid-abdomen Pain Score (Numeric/FACES): 5 - Related Data Allergies/Adverse Reactions: Allergies Allergy/AdvReac Type Severity Reaction Status Date / Time amoxicillin [Amoxicillin] Allergy Hives Verified 02/07/19 18:00 Home Medications: Home Meds Admelog 2 - 12 units SQ QID 02/05/19 [History] Gabapentin [Neurontin] 900 mg PO BEDTIME 02/05/19 [History] Insulin Glargine,Hum.Rec.Anlog [Basaglar Kwikpen U-100] 30 unit SQ BID 02/05/19 [History] Mirtazapine 15 mg PO BEDTIME 02/05/19 [History] Ondansetron [Zofran ODT] 4 mg PO Q6H PRN #8 tab.dis 02/05/19 [Rx] Escitalopram [Lexapro] 20 mg PO DAILY 02/07/19 [History] Triamcinolone Acetonide [Triamcinolone Acetonide 0.1% Crm] 1 appful TOP BID [History] Past Medical History Cardiovascular History: Reports: Blood Clots/VTE/DVT, Other (See Below) Other Cardiovascular History: PE last apr 2018 Respiratory History: Reports: PE Gastrointestinal History: Reports: GERD, Other (See Below) Other Gastrointestinal History: barrets esophgeal type of gerd Musculoskeletal History: Reports: Arthritis, Other (See Below) Other Musculoskeletal History: Prior wrist fracture. Right and left knee problems. Osteomyelitis L 5th toe. Neurological History: Reports: Neuropathy, Diabetic Psychiatric History: Reports: Anxiety, Depression, Psych Hospitalization(s), Suicide Attempt, Other (See Below) Other Psychiatric History: Tylenol overdose. Endocrine/Metabolic History: Reports: IDDM Other Endocrine/Metabolic History: diabetic Hematologic History: Reports: Other (See Below) Other Hematologic History: hx blood clots Immunologic History: Reports: None Dermatologic History: Reports: Other (See Below) Other Dermatologic History: dry skin to feet - Infectious Disease History Infectious Disease History: Reports: None - Past Surgical History HEENT Surgical History: Reports: Oral Surgery Respiratory Surgical History: Reports: Other (See Below) Other Respiratory Surgeries/Procedures: stents per groin to remove PEs and stents removed after GI Surgical History: Reports: Colonoscopy, EGD Musculoskeletal Surgical History: Reports: Amputation Dermatological Surgical History: Reports: None Social & Family History - Family History Family Medical History: Noncontributory - Tobacco Use Smoking Status *Q: Former Smoker Years of Tobacco use: 2 Used Tobacco, but Quit: Yes Month/Year Tobacco Last Used: 2012 Second Hand Smoke Exposure: No - Caffeine Use Caffeine Use: Reports: Coffee, Soda - Recreational Drug Use Recreational Drug Use: No - Living Situation & Occupation Living situation: Reports: Single Occupation: Disabled H&P Review of Systems - Review of Systems: Review Of Systems: See Below General: Reports: Fever, Chills, Weakness HEENT: Reports: No Symptoms Pulmonary: Reports: No Symptoms Cardiovascular: Reports: No Symptoms Gastrointestinal: Reports: Abdominal Pain, Anorexia, Diarrhea, Vomiting. Denies : Bloody Stool Genitourinary: Reports: No Symptoms Musculoskeletal: Reports: No Symptoms Skin: Reports: No Symptoms Psychiatric: Reports: No Symptoms Neurological: Reports: No Symptoms Hematologic/Lymphatic: Reports: No Symptoms Immunologic: Reports: No Symptoms Exam - Exam Exam: See Below - Vital Signs Vital Signs: Last Vital Signs Temp 96.7 F 02/08/19 08:15 Pulse 85 02/08/19 08:15 Resp 16 02/08/19 08:15 BP 100/64 02/08/19 08:15 Pulse Ox 96 02/08/19 08:15 Orthostatic Blood Pressure [ 100/70 Standing] Weight: 166 lb - Exam General: Alert, Oriented, Cooperative HEENT: Hearing Intact, Posterior Pharynx Clear, TMs Clear Neck: Supple, Trachea Midline Lungs: Clear to Auscultation, Normal Respiratory Effort Cardiovascular: Regular Rate, Regular Rhythm. No: Tachycardia, Systolic Murmur GI/Abdominal Exam: Normal Bowel Sounds, Soft, Non-Tender, No Organomegaly, No Distention, No Mass Back Exam: Normal Inspection Extremities: Normal Inspection, Non-Tender, No Pedal Edema Skin: Warm Neuro Extensive - Mental Status: Alert, Oriented x3, Normal Mood/Affect Psychiatric: Alert, Normal Affect, Normal Mood - Patient Data Lab Results Last 24 hrs: Laboratory Results - last 24 hr 02/07/19 02/07/19 02/07/19 Range/Units 18:13 18:13 18:13 WBC 8.4 (4.5-12.0) X10-3/uL RBC 5.08 (4.30-5.75) x10(6)uL Hgb 14.9 (13.5-17.8) g/dL Hct 44.8 (30.0-51.3) % MCV 88.3 (80-96) fL MCH 29.4 (27.7-33.6) pg MCHC 33.3 (32.2-35.4) g/dL RDW 12.5 (11.5-15.5) % Plt Count 260 (125-369) X10(3)uL MPV 8.2 (7.4-10.4) fL Neut % (Auto) 66.1 (46-82) % Lymph % (Auto) 23.4 (13-37) % [place] % (Auto) 5.6 (4-12) % Eos % (Auto) 5 (1.0-5.0) % Baso % (Auto) 0 (0-2) % Neut # (Auto) 5.5 (1.6-8.3) # Lymph # (Auto) 2.0 (0.6-5.0) # [place] # (Auto) 0.5 (0.0-1.3) # Eos # (Auto) 0.4 (0.0-0.8) # Baso # (Auto) 0.0 (0.0-0.2) # Sodium 139 (135-145) mmol/L Potassium 3.5 (3.5-5.3) mmol/L Chloride 103 D (100-110) mmol/L Carbon Dioxide 24 (21-32) mmol/L BUN 15 D (7-18) mg/dL Creatinine 0.7 (0.70-1.30) mg/dL Est Cr Clr Drug Dosing 159.92 mL/min Estimated GFR (MDRD) > 60 (>60) BUN/Creatinine Ratio 21.4 H (9-20) Glucose 261 H D (80-116) mg/dL POC Glucose (80-116) mg/dL Calcium 9.0 (8.6-10.2) mg/dL Total Bilirubin 0.4 (0.1-1.3) mg/dL AST 8 D (5-25) IU/L ALT 16 D (12-36) U/L Alkaline Phosphatase 176 H (56-112) IU/L C-Reactive Protein 0.8 (0.5-0.9) mg/dL Total Protein 8.0 (6.0-8.0) g/dL Albumin 3.7 (3.5-5.2) g/dL Globulin 4.3 g/dL Albumin/Globulin Ratio 0.9 Amylase (25-115) U/L Urine Color (YELLOW) Urine Appearance (CLEAR) Urine pH (5.0-6.5) Ur Specific [place] (1.010-1.025) Urine Protein (NEGATIVE) mg/dL Urine Glucose (UA) (NORMAL) mg/dL Urine Ketones (NEGATIVE) mg/dL Urine Occult Blood (NEGATIVE) Urine Nitrite (NEGATIVE) Urine Bilirubin (NEGATIVE) Urine Urobilinogen (NEGATIVE) mg/dL Ur Leukocyte Esterase (NEGATIVE) Urine RBC (0-5) Urine WBC (0-5) Ur Squamous Epith Cells (NS,R,O) Urine Bacteria (NS) 02/07/19 02/07/19 02/08/19 Range/Units 18:13 21:55 06:12 WBC (4.5-12.0) X10-3/uL RBC (4.30-5.75) x10(6)uL Hgb (13.5-17.8) g/dL Hct (30.0-51.3) % MCV (80-96) fL MCH (27.7-33.6) pg MCHC (32.2-35.4) g/dL RDW (11.5-15.5) % Plt Count (125-369) X10(3)uL MPV (7.4-10.4) fL Neut % (Auto) (46-82) % Lymph % (Auto) (13-37) % [place] % (Auto) (4-12) % Eos % (Auto) (1.0-5.0) % Baso % (Auto) (0-2) % Neut # (Auto) (1.6-8.3) # Lymph # (Auto) (0.6-5.0) # [place] # (Auto) (0.0-1.3) # Eos # (Auto) (0.0-0.8) # Baso # (Auto) (0.0-0.2) # Sodium (135-145) mmol/L Potassium (3.5-5.3) mmol/L Chloride (100-110) mmol/L Carbon Dioxide (21-32) mmol/L BUN (7-18) mg/dL Creatinine (0.70-1.30) mg/dL Est Cr Clr Drug Dosing mL/min Estimated GFR (MDRD) (>60) BUN/Creatinine Ratio (9-20) Glucose (80-116) mg/dL POC Glucose 192 H D (80-116) mg/dL Calcium (8.6-10.2) mg/dL Total Bilirubin (0.1-1.3) mg/dL AST (5-25) IU/L ALT (12-36) U/L Alkaline Phosphatase (56-112) IU/L C-Reactive Protein (0.5-0.9) mg/dL Total Protein (6.0-8.0) g/dL Albumin (3.5-5.2) g/dL Globulin g/dL Albumin/Globulin Ratio Amylase 22 L (25-115) U/L Urine Color Yellow (YELLOW) Urine Appearance Clear (CLEAR) Urine pH 7.0 H (5.0-6.5) Ur Specific [place] 1.005 L (1.010-1.025) Urine Protein Negative (NEGATIVE) mg/dL Urine Glucose (UA) 100 H (NORMAL) mg/dL Urine Ketones Negative (NEGATIVE) mg/dL Urine Occult Blood Negative (NEGATIVE) Urine Nitrite Negative (NEGATIVE) Urine Bilirubin Negative (NEGATIVE) Urine Urobilinogen Normal (NEGATIVE) mg/dL Ur Leukocyte Esterase Negative (NEGATIVE) Urine RBC 0-5 (0-5) Urine WBC 0-5 (0-5) Ur Squamous Epith Cells Rare (NS,R,O) Urine Bacteria Rare H (NS) Result Diagrams: 02/07/19 18:13 02/07/19 18:13 - Problem List (1) Gastroenteritis SNOMED Code(s): 53134242 ICD Code: K52.9 - NONINFECTIVE GASTROENTERITIS AND COLITIS, UNSPECIFIED Status: Acute Current Visit: Yes (2) Diabetes SNOMED Code(s): 53749975 ICD Code: E11.9 - TYPE 2 DIABETES MELLITUS WITHOUT COMPLICATIONS Status: Acute Current Visit: Yes (3) Dehydration SNOMED Code(s): 55859256 ICD Code: E86.0 - DEHYDRATION Status: Acute Current Visit: Yes (4) Failure of outpatient treatment SNOMED Code(s): 081287983 ICD Code: Z78.9 - OTHER SPECIFIED HEALTH STATUS Status: Acute Current Visit: Yes Problem List Initiated/Reviewed/Updated: Yes Orders Last 24hrs: Active Orders 24 hr Category Date Time Status Admission Status [Patient Status] [ADT] Routine ADT 02/07/19 20:30 Active Accu Check [Blood Glucose Check, Bedside] [RC] TIDAC Care 02/08/19 08:15 Active Ambulate [RC] PER UNIT ROUTINE Care 02/07/19 19:25 Active Antiembolic Devices [RC] .Routine Care 02/07/19 19:26 Active Blood Glucose Check, Bedside [RC] 07,11,17,21 Care 02/07/19 22:29 Active Intake and Output [RC] 06,14,22 Care 02/07/19 19:27 Active Orthostatic Vital Signs [RC] ASDIRECTED Care 02/07/19 18:27 Active Up ad Hilda [RC] ASDIRECTED Care 02/07/19 19:25 Active Vital Signs [RC] 08,12,16,20,00,04 Care 02/07/19 19:25 Active Consistent Carbohydrate Diet [DIET] Diet 02/08/19 Lunch Active CDIFF TOXIN A+B GROUP [OP] Routine Lab 02/07/19 18:40 Received STOOL CULTURE Urgent Lab 02/07/19 18:40 Received WHITE BLOOD CELLS (WBC), STOOL Urgent Lab 02/07/19 18:40 Received Atropine/Diphenoxylate [Lomotil 0.025-2.5 MG] Med 02/07/19 22:29 Active 1 tab PO QID PRN Enoxaparin [Lovenox] Med 02/08/19 08:15 Active 40 mg SUBCUT Q24H Escitalopram [Lexapro] Med 02/08/19 09:00 Active 20 mg PO DAILY Gabapentin [Neurontin] Med 02/07/19 21:00 Active 900 mg PO BEDTIME Insulin Glarg,Human.Rec.Analog [LantUS Solostar] Med 02/07/19 21:00 Active 30 units SUBCUT BID Mirtazapine [Remeron] Med 02/07/19 21:00 Active 15 mg PO BEDTIME Sodium Chloride 0.9% [Normal Saline] 3,000 ml Med 02/07/19 22:29 Active IV ASDIRECTED Sodium Chloride 0.9% [Saline Flush] Med 02/07/19 18:25 Active 10 ml FLUSH ASDIRECTED PRN Triamcinolone Acetonide [Triamcinolone Acetonide 0.1% Med 02/08/19 09:00 Active Crm] 0 gm TOP BID DVT/VTE Prophylaxis Reflex [OM.PC] Per Unit Routine Oth 02/07/19 19:25 Ordered Peripheral IV Insertion Adult [OM.PC] Routine Oth 02/07/19 18:25 Ordered Resuscitation Status Routine Resus Stat 02/07/19 19:25 Ordered Medication Orders Diphenoxylate HCl/Atropine (Lomotil 0.025-2.5 Mg) 1 tab PO QID PRN PRN Reason: Diarrhea Enoxaparin Sodium (Lovenox) 40 mg SUBCUT Q24H [facility] Escitalopram Oxalate (Lexapro) 20 mg PO DAILY [facility] Gabapentin (Neurontin) 900 mg PO BEDTIME [facility] Last Admin: 02/07/19 21:27 Dose: 900 mg Sodium Chloride (Normal Saline) 3,000 mls @ 125 mls/hr IV ASDIRECTED [facility] Last Admin: 02/07/19 22:45 Dose: 500 mls/hr Insulin Glargine (Lantus Solostar) 30 units SUBCUT BID [facility] Last Admin: 02/07/19 21:24 Dose: 30 units Mirtazapine (Remeron) 15 mg PO BEDTIME [facility] Last Admin: 02/07/19 21:27 Dose: 15 mg Sodium Chloride (Saline Flush) 10 ml FLUSH ASDIRECTED PRN PRN Reason: Keep Vein Open Triamcinolone Acetonide (Triamcinolone Acetonide 0.1% Crm) 0 gm TOP BID [facility] Assessment/Plan Comment:: . Admit the patient for observation. 2. Aggressive IV fluid replacement. 3. Clear liquids and then proceed to diabetic diet as he tolerates. 4. Labs reviewed no further labs will be done at this time. Will do Accu-Cheks 4 times a day. 5. Up ad hilda. 6. Observe the diarrhea for now and hopefully it will dissipate. If it does not start to improve then consider treating with antidiarrheal medication per 7. Lovenox for VTE prophylaxis 8. Antinausea medication.
[2019-02-08] MEDS: Enoxaparin 40 MG/0.4 ML Syringe SUBCUT SCH (11:00)
[2019-02-08] MEDS: Triamcinolone Acetonide 0.1% Crm 15 GM Tube TOP SCH ×2 (11:10→20:40)
[2019-02-08] MEDS: Insulin Glargine,Human Rec. Analog 100 Units/ML 3 ML Pen SUBCUT SCH ×2 (11:13→20:48)
[2019-02-08] MEDS: Escitalopram 20 MG Tab PO SCH (11:17)
[2019-02-08] MEDS ORDERED: Atropine/Diphenoxylate 0.025-2.5 MG Tab PO PRN (12:04)
[2019-02-08] MEDS: Sodium Chloride 0.9% 1,000 ML IV SCH (17:21)
[2019-02-08] MEDS: Mirtazapine 15 MG Tab PO SCH (20:40)
[2019-02-08] MEDS: Gabapentin 300 MG Cap PO SCH (20:49)
[2019-02-09] MEDS: Sodium Chloride 0.9% 1,000 ML IV SCH (01:15)
[2019-02-09] MEDS: Loperamide 2 MG Cap PO PRN (05:42)
--- NOTE | 2019-02-09 08:32 | PCM.PN ---
- General Info Date of Service: 02/09/19 Admission Dx/Problem (Free Text): The patient's had frequent stools up every hour with watery diarrhea. No blood, abdominal cramping, nausea, vomiting, fevers. His no exposures, or antibiotics. - Patient Data Vitals - Most Recent: Last Vital Signs Temp 98.4 F 02/09/19 07:35 Pulse 95 02/09/19 07:35 Resp 16 02/09/19 07:35 BP 101/64 02/09/19 07:35 Pulse Ox 96 02/09/19 07:35 Orthostatic Blood Pressure [ 100/70 Standing] Weight - Most Recent: 166 lb I&O - Last 24 Hours: Intake & Output 02/08/19 02/09/19 02/09/19 22:59 06:59 14:59 Intake Total 640 907 Output Total 3200 Balance -2560 907 Lab Results Last 24 Hours: Laboratory Results - last 24 hr 02/08/19 02/08/19 02/08/19 Range/Units 06:12 11:13 16:43 POC Glucose 192 H 189 H 123 H (80-116) mg/dL 02/09/19 Range/Units 06:12 POC Glucose 116 (80-116) mg/dL Ben Results Last 24 Hours: Microbiology 02/07/19 18:40 Clostridium difficile Toxin A & B - Final Stool / Feces - Stool, Liquid NEGATIVE CDIFF TOXIN REFERENCE RANGE: NEGATIVE Med Orders - Current: Current Medications Ciprofloxacin (Ciprofloxacin Hcl) 500 mg PO BID [facility] Enoxaparin Sodium (Lovenox) 40 mg SUBCUT Q24H [facility] Last Admin: 02/08/19 11:00 Dose: 40 mg Escitalopram Oxalate (Lexapro) 20 mg PO DAILY [facility] Last Admin: 02/08/19 11:17 Dose: 20 mg Gabapentin (Neurontin) 900 mg PO BEDTIME [facility] Last Admin: 02/08/19 20:49 Dose: 900 mg Sodium Chloride (Normal Saline) 1,000 mls @ 125 mls/hr IV ASDIRECTED [facility] Last Admin: 02/09/19 01:15 Dose: 125 mls/hr Insulin Glargine (Lantus Solostar) 30 units SUBCUT BID [facility] Last Admin: 02/08/19 20:48 Dose: 30 units Loperamide HCl (Imodium) 2 mg PO Q4H PRN PRN Reason: Diarrhea Last Admin: 02/09/19 05:42 Dose: 2 mg Mirtazapine (Remeron) 15 mg PO BEDTIME [facility] Last Admin: 02/08/19 20:40 Dose: Not Given Sodium Chloride (Saline Flush) 10 ml FLUSH ASDIRECTED PRN PRN Reason: Keep Vein Open Triamcinolone Acetonide (Triamcinolone Acetonide 0.1% Crm) 0 gm TOP BID [facility] Last Admin: 02/08/19 20:40 Dose: Not Given Discontinued Medications Diphenoxylate HCl/Atropine (Lomotil 0.025-2.5 Mg) 1 tab PO QID PRN PRN Reason: Diarrhea Last Admin: 02/08/19 13:00 Dose: 1 tab Diphenoxylate HCl/Atropine (Lomotil 0.025-2.5 Mg) 1 tab PO TID PRN PRN Reason: Diarrhea Promethazine HCl 25 mg/ Sodium (Chloride) 51 mls @ 200 mls/hr IV ONETIME ONE Stop: 02/07/19 18:43 Last Admin: 02/07/19 20:01 Dose: 200 mls/hr Sodium Chloride (Normal Saline) 1,000 mls @ 999 mls/hr IV .BOLUS ONE Stop: 02/07/19 19:28 Last Admin: 02/07/19 19:55 Dose: 999 mls/hr Sodium Chloride (Normal Saline) 3,000 mls @ 125 mls/hr IV ASDIRECTED [facility] Last Admin: 02/07/19 22:45 Dose: 500 mls/hr Non-Formulary Medication (Triamcinolone Acetonide [Triamcinolone Acetonide 0.1% Crm]) 1 appful TOP BID [facility] Last Admin: 02/07/19 21:27 Dose: Not Given - Exam General: Alert, Oriented, Cooperative Lungs: Normal Respiratory Effort GI/Abdominal Exam: Soft, Non-Tender, No Organomegaly, No Distention, Other ( Hyperactive bowel sounds) Extremities: No Pedal Edema - Problem List & Annotations (1) Diabetes SNOMED Code(s): 57686355 Code(s): E11.9 - TYPE 2 DIABETES MELLITUS WITHOUT COMPLICATIONS Status: Acute Current Visit: Yes (2) Dehydration SNOMED Code(s): 90885711 Code(s): E86.0 - DEHYDRATION Status: Acute Current Visit: Yes (3) Failure of outpatient treatment SNOMED Code(s): 305444938 Code(s): Z78.9 - OTHER SPECIFIED HEALTH STATUS Status: Acute Current Visit: Yes (4) Infectious gastroenteritis SNOMED Code(s): 17667362 Code(s): A09 - INFECTIOUS GASTROENTERITIS AND COLITIS, UNSPECIFIED Status: Acute Current Visit: Yes - Problem List Review Problem List Initiated/Reviewed/Updated: Yes - My Orders Last 24 Hours: My Active Orders 02/08/19 08:15 Accu Check [Blood Glucose Check, Bedside] [RC] 07,11,17 Enoxaparin [Lovenox] 40 mg SUBCUT Q24H 02/08/19 17:15 Sodium Chloride 0.9% [Normal Saline] 1,000 ml IV ASDIRECTED 02/09/19 04:33 Loperamide [Imodium] 2 mg PO Q4H PRN 02/09/19 06:15 STOOL CULTURE Routine 02/09/19 09:00 Ciprofloxacin [Ciprofloxacin HCl] 500 mg PO BID - Plan Plan:: 1. C. difficile is negative so precautions were stopped. 2. Patient's taken orals adequately so DC IV fluids and saline lock IV. 3. Stool culture 4. Start Cipro 500 twice a day. 5. Lomotil started yesterday afternoon and did not help. Change to Imodium. 6. Because of patient's not progressing as intended. We'll switch him from observation to inpatient.
[2019-02-09] MEDS: Enoxaparin 40 MG/0.4 ML Syringe SUBCUT SCH (09:04)
[2019-02-09] MEDS: Ciprofloxacin 500 MG Tab PO SCH ×2 (09:07→21:04)
[2019-02-09] MEDS: Escitalopram 20 MG Tab PO SCH (09:07)
[2019-02-09] MEDS: Insulin Glargine,Human Rec. Analog 100 Units/ML 3 ML Pen SUBCUT SCH ×2 (09:10→21:03)
[2019-02-09] MEDS: Triamcinolone Acetonide 0.1% Crm 15 GM Tube TOP SCH ×3 (09:17→21:11)
[2019-02-09] MEDS: Gabapentin 300 MG Cap PO SCH (21:04)
[2019-02-09] MEDS: Mirtazapine 15 MG Tab PO SCH ×2 (21:04→21:10)
[2019-02-10] MEDS: Triamcinolone Acetonide 0.1% Crm 15 GM Tube TOP SCH ×2 (08:29→21:07)
[2019-02-10] MEDS: Enoxaparin 40 MG/0.4 ML Syringe SUBCUT SCH (08:31)
[2019-02-10] MEDS: Escitalopram 20 MG Tab PO SCH (08:31)
[2019-02-10] MEDS: Ciprofloxacin 500 MG Tab PO SCH ×2 (08:31→21:06)
[2019-02-10] MEDS: Insulin Glargine,Human Rec. Analog 100 Units/ML 3 ML Pen SUBCUT SCH ×2 (08:32→21:08)
[2019-02-10] MEDS: Loperamide 2 MG Cap PO PRN (08:41)
[2019-02-10] MEDS: Lactobacillus Rhamnosus GG (Probiotic) Cap PO SCH (11:22)
--- NOTE | 2019-02-10 12:39 | PN ---
DATE SEEN: 02/10/2019 SUBJECTIVE: Ector Douglas is a 28-year-old male, admitted with complicated diarrhea. Voluminous huge quantities of stool up to 20 per day. Clostridium difficile negative. Culture sent to reference lab, not available. Eating well, feeling well. Cramps were minimal. Voluminous stools persisting. LABORATORY STUDIES: CBC and panel 8 today. Otherwise, feeling well. No weights have been documented. Sugars have been fine per exam. OBJECTIVE: VITAL SIGNS: 36.4, 77, 105/68, 80, and 14. O2 saturation 98%. GENERAL: Appears comfortable. HEENT: Mouth and oropharynx clear. NECK: Benign. Thyroid small. CHEST: Clear in all lung strick[place]. HEART: No ectopy or murmur. ABDOMEN: Little tender in the left lower quadrant. IMPRESSION: Protracted diarrhea. PLAN: Origin uncertain, testing pending, reference lab, GI studies, consultation plan to Dr. Mcmillan upcoming and plan. /[id number] EVANGELISTA/ANDREW
--- NOTE | 2019-02-10 17:35 | PCM.CONS ---
H&P History of Present Illness - General Date of Service: 02/10/19 Admit Problem/Dx: The patient's had frequent stools up every hour with watery diarrhea. No blood, abdominal cramping, nausea, vomiting, fevers. His no exposures, or antibiotics. - History of Present Illness Initial Comments - Free Text/Narative: 28 yo wm with a 10 day hx of diarrhea. This has been watery in nature. No blood or mucous noted. C. diff was negative. Has been admitted and while he required some iv hydration initially has been able to keep orally hydrate. Loose stools are made worse with eating. Has had normal WBC and denies any fever or marked abd pain. Mid-abdomen Pain Score (Numeric/FACES): 5 - Related Data Allergies/Adverse Reactions: Allergies Allergy/AdvReac Type Severity Reaction Status Date / Time amoxicillin [Amoxicillin] Allergy Hives Verified 02/07/19 18:00 Home Medications: Home Meds Admelog 2 - 12 units SQ QID 02/05/19 [History] Gabapentin [Neurontin] 900 mg PO BEDTIME 02/05/19 [History] Insulin Glargine,Hum.Rec.Anlog [Basaglar Kwikpen U-100] 30 unit SQ BID 02/05/19 [History] Mirtazapine 15 mg PO BEDTIME 02/05/19 [History] Ondansetron [Zofran ODT] 4 mg PO Q6H PRN #8 tab.dis 02/05/19 [Rx] Escitalopram [Lexapro] 20 mg PO DAILY 02/07/19 [History] Triamcinolone Acetonide [Triamcinolone Acetonide 0.1% Crm] 1 appful TOP BID [History] Past Medical History Cardiovascular History: Reports: Blood Clots/VTE/DVT, Other (See Below) Other Cardiovascular History: PE last apr 2018 Respiratory History: Reports: PE Gastrointestinal History: Reports: GERD, Other (See Below) Other Gastrointestinal History: barrets esophgeal type of gerd Musculoskeletal History: Reports: Arthritis, Other (See Below) Other Musculoskeletal History: Prior wrist fracture. Right and left knee problems. Osteomyelitis L 5th toe. Neurological History: Reports: Neuropathy, Diabetic Psychiatric History: Reports: Anxiety, Depression, Psych Hospitalization(s), Suicide Attempt, Other (See Below) Other Psychiatric History: Tylenol overdose. Endocrine/Metabolic History: Reports: IDDM Other Endocrine/Metabolic History: diabetic Hematologic History: Reports: Other (See Below) Other Hematologic History: hx blood clots Immunologic History: Reports: None Dermatologic History: Reports: Other (See Below) Other Dermatologic History: dry skin to feet - Infectious Disease History Infectious Disease History: Reports: None - Past Surgical History HEENT Surgical History: Reports: Oral Surgery Respiratory Surgical History: Reports: Other (See Below) Other Respiratory Surgeries/Procedures: stents per groin to remove PEs and stents removed after GI Surgical History: Reports: Colonoscopy, EGD Musculoskeletal Surgical History: Reports: Amputation Dermatological Surgical History: Reports: None Social & Family History - Family History Family Medical History: Noncontributory - Tobacco Use Smoking Status *Q: Former Smoker Years of Tobacco use: 2 Used Tobacco, but Quit: Yes Month/Year Tobacco Last Used: 2012 Second Hand Smoke Exposure: No - Caffeine Use Caffeine Use: Reports: Coffee, Soda - Recreational Drug Use Recreational Drug Use: No - Living Situation & Occupation Living situation: Reports: Single Occupation: Disabled H&P Review of Systems - Review of Systems: Review Of Systems: See Below General: Denies: Fever, Chills, Decreased Appetite Pulmonary: Reports: No Symptoms Cardiovascular: Reports: No Symptoms Gastrointestinal: Reports: Diarrhea Exam - Exam Exam: See Below - Vital Signs Vital Signs: Last Vital Signs Temp 97.5 F 02/10/19 04:00 Pulse 77 02/10/19 04:00 Resp 14 02/10/19 04:00 BP 105/68 02/10/19 04:00 Pulse Ox 98 02/10/19 04:00 Orthostatic Blood Pressure [ 100/70 Standing] Weight: 75.296 kg - Exam General: Alert, Oriented, Cooperative. No: Mild Distress Lungs: Clear to Auscultation, Normal Respiratory Effort Cardiovascular: Regular Rate, Regular Rhythm GI/Abdominal Exam: Soft, Non-Tender, Abnormal Bowel Sounds (hyperactive ). No: Rigid, Rebound, Tender - Patient Data Lab Results Last 24 hrs: Laboratory Results - last 24 hr 02/09/19 02/09/19 02/09/19 Range/Units 17:52 18:27 21:02 WBC (4.5-12.0) X10-3/uL RBC (4.30-5.75) x10(6)uL Hgb (13.5-17.8) g/dL Hct (30.0-51.3) % MCV (80-96) fL MCH (27.7-33.6) pg MCHC (32.2-35.4) g/dL RDW (11.5-15.5) % Plt Count (125-369) X10(3)uL MPV (7.4-10.4) fL Neut % (Auto) (46-82) % Lymph % (Auto) (13-37) % Angelina % (Auto) (4-12) % Eos % (Auto) (1.0-5.0) % Baso % (Auto) (0-2) % Neut # (Auto) (1.6-8.3) # Lymph # (Auto) (0.6-5.0) # Angelina # (Auto) (0.0-1.3) # Eos # (Auto) (0.0-0.8) # Baso # (Auto) (0.0-0.2) # ESR (0-15) mm/hr Sodium (135-145) mmol/L Potassium (3.5-5.3) mmol/L Chloride (100-110) mmol/L Carbon Dioxide (21-32) mmol/L BUN (7-18) mg/dL Creatinine (0.70-1.30) mg/dL Est Cr Clr Drug Dosing mL/min Estimated GFR (MDRD) (>60) BUN/Creatinine Ratio (9-20) Glucose (80-116) mg/dL POC Glucose 69 L 102 125 H (80-116) mg/dL Calcium (8.6-10.2) mg/dL C-Reactive Protein (0.5-0.9) mg/dL 02/10/19 02/10/19 02/10/19 Range/Units 11:05 11:05 11:05 WBC 5.8 (4.5-12.0) X10-3/uL RBC 4.72 (4.30-5.75) x10(6)uL Hgb 14.2 (13.5-17.8) g/dL Hct 41.6 (30.0-51.3) % MCV 88.1 (80-96) fL MCH 30.1 (27.7-33.6) pg MCHC 34.2 (32.2-35.4) g/dL RDW 13.1 (11.5-15.5) % Plt Count 249 (125-369) X10(3)uL MPV 7.7 (7.4-10.4) fL Neut % (Auto) 41.5 L (46-82) % Lymph % (Auto) 42.1 H (13-37) % Angelina % (Auto) 7.7 (4-12) % Eos % (Auto) 8 H (1.0-5.0) % Baso % (Auto) 0 (0-2) % Neut # (Auto) 2.4 (1.6-8.3) # Lymph # (Auto) 2.5 (0.6-5.0) # Angelina # (Auto) 0.4 (0.0-1.3) # Eos # (Auto) 0.5 (0.0-0.8) # Baso # (Auto) 0.0 (0.0-0.2) # ESR 18 H (0-15) mm/hr Sodium 144 (135-145) mmol/L Potassium 3.4 L (3.5-5.3) mmol/L Chloride 109 D (100-110) mmol/L Carbon Dioxide 25 (21-32) mmol/L BUN 11 (7-18) mg/dL Creatinine 0.7 (0.70-1.30) mg/dL Est Cr Clr Drug Dosing 159.92 mL/min Estimated GFR (MDRD) > 60 (>60) BUN/Creatinine Ratio 15.7 (9-20) Glucose 209 H (80-116) mg/dL POC Glucose (80-116) mg/dL Calcium 8.8 (8.6-10.2) mg/dL C-Reactive Protein (0.5-0.9) mg/dL 02/10/19 02/10/19 02/10/19 Range/Units 11:05 11:21 17:06 WBC (4.5-12.0) X10-3/uL RBC (4.30-5.75) x10(6)uL Hgb (13.5-17.8) g/dL Hct (30.0-51.3) % MCV (80-96) fL MCH (27.7-33.6) pg MCHC (32.2-35.4) g/dL RDW (11.5-15.5) % Plt Count (125-369) X10(3)uL MPV (7.4-10.4) fL Neut % (Auto) (46-82) % Lymph % (Auto) (13-37) % Angelina % (Auto) (4-12) % Eos % (Auto) (1.0-5.0) % Baso % (Auto) (0-2) % Neut # (Auto) (1.6-8.3) # Lymph # (Auto) (0.6-5.0) # Angelina # (Auto) (0.0-1.3) # Eos # (Auto) (0.0-0.8) # Baso # (Auto) (0.0-0.2) # ESR (0-15) mm/hr Sodium (135-145) mmol/L Potassium (3.5-5.3) mmol/L Chloride (100-110) mmol/L Carbon Dioxide (21-32) mmol/L BUN (7-18) mg/dL Creatinine (0.70-1.30) mg/dL Est Cr Clr Drug Dosing mL/min Estimated GFR (MDRD) (>60) BUN/Creatinine Ratio (9-20) Glucose (80-116) mg/dL POC Glucose 208 H D 201 H (80-116) mg/dL Calcium (8.6-10.2) mg/dL C-Reactive Protein 0.7 (0.5-0.9) mg/dL Result Diagrams: 02/10/19 11:05 02/10/19 11:05 Consult PN Assessment/Plan Procedures: Procedures ASSAY OF AMYLASE (08/29/13) ASSAY OF MAGNESIUM (04/27/14) ASSAY OF PHOSPHORUS (04/16/14) ASSAY OF TROPONIN QUANT (02/05/19) BIOPSY/REMOVAL LYMPH NODES (10/12/13) BLOOD CULTURE FOR BACTERIA (12/31/18) C-REACTIVE PROTEIN (12/31/18) CHEST X-RAY 1 VIEW FRONTAL (04/27/14) CHEST X-RAY 2VW FRONTAL&LATL (01/14/14) COMPLETE CBC AUTOMATED (04/27/14) COMPLETE CBC W/AUTO DIFF WBC (02/05/19) COMPREHEN METABOLIC PANEL (02/05/19) CT ANGIOGRAPHY CHEST (02/05/19) CULTURE AEROBIC IDENTIFY (12/31/18) CULTURE OTHR SPECIMN AEROBIC (12/31/18) ELECTROCARDIOGRAM TRACING (02/05/19) EMERGENCY DEPT VISIT (02/05/19) EMERGENCY DEPT VISIT (12/31/18) EMERGENCY DEPT VISIT (11/10/18) EMERGENCY DEPT VISIT (03/26/16) EMERGENCY DEPT VISIT (06/09/15) EMERGENCY DEPT VISIT (04/27/14) EMERGENCY DEPT VISIT (04/16/14) EMERGENCY DEPT VISIT (03/25/14) EMERGENCY DEPT VISIT (01/14/14) EMERGENCY DEPT VISIT (11/27/13) EMERGENCY DEPT VISIT (11/27/13) EMERGENCY DEPT VISIT (10/21/13) EMERGENCY DEPT VISIT (10/21/13) EMERGENCY DEPT VISIT (08/29/13) FIBRIN DEGRADATION QUANT (01/14/14) GLUCOSE BLOOD TEST (12/31/18) GLYCOSYLATED HEMOGLOBIN TEST (04/16/14) HYDRATE IV INFUSION ADD-ON (02/05/19) INTRAOP CYTO PATH CONSULT 1 (10/12/13) METABOLIC PANEL TOTAL CA (12/31/18) MICROBE SUSCEPTIBLE EFREN (12/31/18) REAGENT STRIP/BLOOD GLUCOSE (10/12/13) REMOVAL OF NAIL BED (12/31/18) ROUTINE VENIPUNCTURE (02/05/19) SMEAR GRAM STAIN (12/31/18) THER/PROPH/DIAG INJ IV PUSH (02/05/19) THER/PROPH/DIAG INJ SC/IM (02/05/19) THER/PROPH/DIAG IV INF ADDON (12/31/18) THER/PROPH/DIAG IV INF INIT (12/31/18) TISSUE EXAM BY PATHOLOGIST (10/12/13) TX/PRO/DX INJ NEW DRUG ADDON (02/05/19) URINALYSIS AUTO W/O SCOPE (04/16/14) URINALYSIS AUTO W/SCOPE (04/27/14) X-RAY EXAM CHEST 1 VIEW (02/05/19) X-RAY EXAM OF FOOT (12/31/18) (1) Diarrhea SNOMED Code(s): 10890501 Code(s): R19.7 - DIARRHEA, UNSPECIFIED Current Visit: Yes Qualifiers: Diarrhea type: unspecified type Qualified Code(s): R19.7 - Diarrhea, unspecified Problem List Initiated/Reviewed/Updated: Yes My Orders Last 24 Hours: empiric treatment with antibiotics is certainly reasonable at this time. I do no see any indication for an emergent or urgent endoscopy.
[2019-02-10] MEDS: Mirtazapine 15 MG Tab PO SCH (21:06)
[2019-02-10] MEDS: Gabapentin 300 MG Cap PO SCH (21:12)
[2019-02-11] MEDS: Enoxaparin 40 MG/0.4 ML Syringe SUBCUT SCH (09:57)
[2019-02-11] MEDS: Ciprofloxacin 500 MG Tab PO SCH (09:57)
[2019-02-11] MEDS: Lactobacillus Rhamnosus GG (Probiotic) Cap PO SCH (09:58)
[2019-02-11] MEDS: Insulin Glargine,Human Rec. Analog 100 Units/ML 3 ML Pen SUBCUT SCH (09:58)
[2019-02-11] MEDS: Escitalopram 20 MG Tab PO SCH (09:59)
[2019-02-11] MEDS: Triamcinolone Acetonide 0.1% Crm 15 GM Tube TOP SCH (10:02)
[2019-02-11 10:18] VITALS: BP 112/70
--- NOTE | 2019-02-13 09:06 | DISCH ---
DISCHARGE DATE: 02/11/2019 Ector Douglas is a 28-year-old male admitted with complicated profuse disabling and troublesome diarrhea. Clostridium difficile was negative. He was given IV fluids, diet was advanced, and 24 hours prior to discharge, stools had become less problematic. Routine culture sent to reference lab, pending at time of discharge. DISCHARGE PHYSICAL EXAMINATION: VITAL SIGNS: Weight 75.2 kg stable; 36.6; 81; 112/70, 84 is the mean blood pressure; 18 respirations; and saturation 98%. GENERAL: Appears comfortable. HEENT: Funduscopic benign. Bright TMs. Clear nasal discharge. Mouth and oropharynx are clear. Fair dentition. Tongue midline. NECK: Benign. CHEST: Clear in all lung strick[place]. HEART: No ectopy or murmur. ABDOMEN: Pretty benign. A little tender in left lower quadrant. EXTREMITIES: Well perfused. LABORATORY STUDIES: Hemoglobin 14.2, hematocrit 41.6, and white count 5,800. Potassium borderline at 3.4. ASSESSMENT: Complicated gastroenteritis. PLAN: Discharge home on ciprofloxacin; probiotics of choice; moderated diet, 6 small meals; and avoidance of milk products for a week. /[id number] EVANGELISTA/ANDREW
== END 2019-02-11 12:28 | disposition home or self-care (01) | DRG 392 ==
LOC: FB.ED 17:18 → FB.MS 19:52 → OBSVTOIN 02-09 08:33
PROVIDERS: ADMIT Family Medicine; ATTEND Family Medicine
DX: K52.89 Other specified noninfective gastroenteritis and colitis (principal); E86.0 Dehydration; E11.40 Type 2 diabetes mellitus with diabetic neuropathy, unspecified; E11.65 Type 2 diabetes mellitus with hyperglycemia; Z79.4 Long term (current) use of insulin; Z86.718 Personal history of other venous thrombosis and embolism; Z86.711 Personal history of pulmonary embolism; K22.70 Barrett's esophagus without dysplasia; K21.9 Gastro-esophageal reflux disease without esophagitis; M19.90 Unspecified osteoarthritis, unspecified site; F41.9 Anxiety disorder, unspecified; F32.9 Major depressive disorder, single episode, unspecified; Z87.891 Personal history of nicotine dependence; Z89.422 Acquired absence of other left toe(s); Z91.5 Personal history of self-harm; Z88.1 Allergy status to other antibiotic agents
CPT/HCPCS: 36415; 80048; 80053; 81001; 82150; 82962; 85025; 85651; 86140; 87045; 87046; 87324; 87427; 89055; 96361; 96365; 96372; 99283-25; A9270-GY; G0378; J1650; J1815-GY; J2550; J7030; J7050

== ENCOUNTER 2019-02-19 17:35 | Emergency (ER) | payer MEDICAID ==
[2019-02-19] MEDS ORDERED: Sodium Chloride 0.9% 10 ML Syringe FLUSH PRN (18:17)
--- NOTE | 2019-02-19 18:17 | EDM.PDOC ---
ED HPI GENERAL MEDICAL PROBLEM - General Chief Complaint: Gastrointestinal Problem Stated Complaint: DIARRHEA Time Seen by Provider: 02/19/19 18:05 Source of Information: Reports: Patient History Limitations: Reports: No Limitations - History of Present Illness INITIAL COMMENTS - FREE TEXT/NARRATIVE: 28-year-old male who presents complaining of recurrent diarrhea and diffuse abdominal pain. He was just admitted to the hospital on 02/11/2019 secondary to persisting diarrhea and dehydration with abdominal pain. He apparently had a fairly extensive workup while he was in the hospital and all studies were normal and with IV fluids and Imodium apparently his diarrhea improved as resolved. He was discharged and he reports that the diarrhea was gone for 2 days. However, he reports the diarrhea began again on 02/15/2019 and he has had persisting problems with diarrhea and diffuse abdominal pain since that time. He has been able to drink liquids but he hasn't really had much of an appetite and he has not been eating. He has been taking Imodium with some reduction in his loose stools but only partial. He has taken 3 Imodium's today. He has had no nausea or vomiting. He reports that his pain is at a 6/10 level. It is sharp , crampy and diffuse. It does not radiate. He has had diarrhea 10-11 today. No weakness or dizziness. He does feel fatigued. No chest pain. No shortness of breath. He reports that his blood sugars have been in the 115 to 120 range. He has been taking his insulin. There are no other associated signs or symptoms. There are no other modifying factors. Onset: Other (Intermittent is 02/08/2019 and recurrent on 02/15/2019) Duration: Constant Location: Reports: Abdomen Quality: Reports: Sharp (And crampy) Severity: Moderate Improves with: Reports: None Worsens with: Reports: Eating, Other (Palpation) Context: Reports: Other (No known inciting event) Treatments [employer]: Reports: Other Medication(s) (Imodium) abdomen Pain Score (Numeric/FACES): 6 - Related Data Allergies Allergy/AdvReac Type Severity Reaction Status Date / Time amoxicillin [Amoxicillin] Allergy Hives Verified 02/19/19 17:50 Home Meds: Home Meds Admelog 2 - 12 units SQ QID 02/05/19 [History] Gabapentin [Neurontin] 900 mg PO BEDTIME 02/05/19 [History] Insulin Glargine,Hum.Rec.Anlog [Basaglbri Coronadopen U-100] 30 unit SQ BID 02/05/19 [History] Mirtazapine 15 mg PO BEDTIME 02/05/19 [History] Ondansetron [Zofran ODT] 4 mg PO Q6H PRN #8 tab.dis 02/05/19 [Rx] Escitalopram [Lexapro] 20 mg PO DAILY 02/07/19 [History] Past Medical History Cardiovascular History: Reports: Blood Clots/VTE/DVT, Other (See Below) Other Cardiovascular History: PE last apr 2018 Respiratory History: Reports: PE Gastrointestinal History: Reports: GERD, Other (See Below) Other Gastrointestinal History: barrets esophgeal type of gerd Musculoskeletal History: Reports: Arthritis, Other (See Below) Other Musculoskeletal History: Prior wrist fracture. Right and left knee problems. Osteomyelitis L 5th toe. Neurological History: Reports: Neuropathy, Diabetic Psychiatric History: Reports: Anxiety, Depression, Psych Hospitalization(s), Suicide Attempt, Other (See Below) Other Psychiatric History: Tylenol overdose. Endocrine/Metabolic History: Reports: IDDM Other Endocrine/Metabolic History: diabetic Hematologic History: Reports: Other (See Below) Other Hematologic History: hx blood clots Dermatologic History: Reports: Other (See Below) Other Dermatologic History: dry skin to feet - Infectious Disease History Infectious Disease History: Reports: None - Past Surgical History Respiratory Surgical History: Reports: Other (See Below) Other Respiratory Surgeries/Procedures: stents per groin to remove PEs and stents removed after GI Surgical History: Reports: Colonoscopy, EGD Musculoskeletal Surgical History: Reports: Amputation (Of toe) Social & Family History - Tobacco Use Smoking Status *Q: Never Smoker Second Hand Smoke Exposure: No - Caffeine Use Caffeine Use: Reports: Coffee, Energy Drinks, Soda - Alcohol Use Alcohol Use History: No - Recreational Drug Use Recreational Drug Use: No - Living Situation & Occupation Living situation: Reports: Single Occupation: Disabled ED ROS GENERAL - Review of Systems Review Of Systems: See Below Constitutional: Reports: No Symptoms HEENT: Reports: No Symptoms Respiratory: Reports: No Symptoms Cardiovascular: Reports: No Symptoms GI/Abdominal: Reports: Abdominal Pain, Diarrhea : Reports: No Symptoms Musculoskeletal: Reports: No Symptoms Skin: Reports: No Symptoms Neurological: Reports: No Symptoms Hematologic/Lymphatic: Reports: No Symptoms Immunologic: Reports: No Symptoms ED EXAM, GI/ABD - Physical Exam Exam: See Below Exam Limited By: No Limitations General Appearance: Alert, WD/WN, Mild Distress Eyes: Bilateral: Normal Appearance, EOMI Ears: Normal External Exam Nose: Normal Inspection, Normal Mucosa, No Blood Throat/Mouth: Normal Inspection, Normal Oropharynx, Normal Voice, No Airway Compromise, Other (Moist mucous membranes) Head: Atraumatic, Normocephalic Neck: Normal Inspection, Supple, Non-Tender, Full Range of Motion Respiratory/Chest: No Respiratory Distress, Lungs Clear, Normal Breath Sounds, No Accessory Muscle Use, Chest Non-Tender Cardiovascular: Normal Peripheral Pulses, Regular Rate, Rhythm, No JVD GI/Abdominal Exam: Normal Bowel Sounds, Soft, No Mass, Tender (Mild diffuse tenderness), Other (Scaphoid abdomen) Back Exam: Normal Inspection Extremities: Normal Inspection, Normal Range of Motion, Non-Tender, No Pedal Edema, Normal Capillary Refill Neurological: Alert, Oriented, CN II-XII Intact, Normal Cognition, No Motor/ Sensory Deficits Skin Exam: Warm, Dry, Intact, Normal Color, No Rash Course - Vital Signs Last Recorded V/S: Last Vital Signs Temp 36.6 C 02/19/19 22:50 Pulse 92 02/19/19 22:50 Resp 18 02/19/19 22:50 BP 109/65 02/19/19 22:50 Pulse Ox 98 02/19/19 22:50 Orthostatic Blood Pressure [ 80/55 Standing] Orthostatic Blood Pressure [ 93/52 Sitting] Orthostatic Blood Pressure [ 91/53 Side, Right] - Orders/Labs/Meds Orders: Active Orders 24 hr Category Date Time Status Accu Check [Blood Glucose Check, Bedside] [RC] ONETIME Care 02/20/19 00:05 Ordered Orthostatic Vital Signs [RC] ASDIRECTED Care 02/19/19 18:20 Active Abdomen 2V AP Flat Upright [CR] Stat Exams 02/19/19 18:17 Taken Abdomen Pelvis w Cont [CT] Stat Exams 02/19/19 19:36 Taken Ciprofloxacin in D5W [Cipro in D5W 400 MG/200 ML] 400 Med 02/19/19 23:59 Active mg Premix Bag 1 bag IV ONETIME Sodium Chloride 0.9% [Saline Flush] Med 02/19/19 18:17 Active 10 ml FLUSH ASDIRECTED PRN Peripheral IV Insertion Adult [OM.PC] Routine Oth 02/19/19 18:17 Ordered Medication Orders Ciprofloxacin/Dextrose 400 mg/ (Premix) 200 mls @ 200 mls/hr IV ONETIME ONE Stop: 02/20/19 00:58 Sodium Chloride (Saline Flush) 10 ml FLUSH ASDIRECTED PRN PRN Reason: Keep Vein Open Labs: Laboratory Tests 02/19/19 02/19/19 02/19/19 Range/Units 18:46 18:46 18:46 WBC 7.9 (4.5-12.0) X10-3/uL RBC 5.22 (4.30-5.75) x10(6)uL Hgb 15.0 (13.5-17.8) g/dL Hct 46.1 (30.0-51.3) % MCV 88.4 (80-96) fL MCH 28.8 (27.7-33.6) pg MCHC 32.6 (32.2-35.4) g/dL RDW 12.7 (11.5-15.5) % Plt Count 256 (125-369) X10(3)uL MPV 8.1 (7.4-10.4) fL Neut % (Auto) 65.0 (46-82) % Lymph % (Auto) 21.0 (13-37) % Sharkey % (Auto) 9.6 (4-12) % Eos % (Auto) 4 (1.0-5.0) % Baso % (Auto) 0 (0-2) % Neut # (Auto) 5.1 (1.6-8.3) # Lymph # (Auto) 1.7 (0.6-5.0) # Sharkey # (Auto) 0.8 (0.0-1.3) # Eos # (Auto) 0.3 (0.0-0.8) # Baso # (Auto) 0.0 (0.0-0.2) # Sodium 134 L D (135-145) mmol/L Potassium 4.0 (3.5-5.3) mmol/L Chloride 99 L D (100-110) mmol/L Carbon Dioxide 24 (21-32) mmol/L BUN 22 H D (7-18) mg/dL Creatinine 0.8 (0.70-1.30) mg/dL Est Cr Clr Drug Dosing 139.93 mL/min Estimated GFR (MDRD) > 60 (>60) BUN/Creatinine Ratio 27.5 H (9-20) Glucose 388 H D (80-116) mg/dL Calcium 8.5 L (8.6-10.2) mg/dL Magnesium 1.4 L (1.8-2.5) mg/dL Total Bilirubin 0.7 (0.1-1.3) mg/dL AST 15 D (5-25) IU/L ALT 18 D (12-36) U/L Alkaline Phosphatase 190 H (56-112) IU/L C-Reactive Protein 2.4 H (0.5-0.9) mg/dL Total Protein 8.1 H (6.0-8.0) g/dL Albumin 3.8 (3.5-5.2) g/dL Globulin 4.3 g/dL Albumin/Globulin Ratio 0.9 Meds: Medications Generic Name Dose Route Start Last Admin Trade Name Triston PRN Reason Stop Dose Admin Ciprofloxacin/Dextrose 400 mg/ 200 mls @ 200 mls/hr 02/19/19 23:59 Premix IV 02/20/19 00:58 ONETIME ONE Sodium Chloride 10 ml 02/19/19 18:17 Saline Flush FLUSH ASDIRECTED PRN Keep Vein Open Discontinued Medications Generic Name Dose Route Start Last Admin Trade Name Triston PRN Reason Stop Dose Admin Promethazine HCl 25 mg/ Sodium 51 mls @ 200 mls/hr 02/19/19 18:19 02/19/19 18 :51 Chloride IV 200 mls/hr Q6H PRN Administration Nausea/Vomiting Sodium Chloride 1,000 mls @ 999 mls/hr 02/19/19 18:19 02/19/19 18:48 Normal Saline IV 02/19/19 19:19 999 mls/hr .BOLUS ONE Administration Magnesium Sulfate 2 gm/ Premix 50 mls @ 150 mls/hr 02/19/19 19:35 02/19/19 19 :44 IV 02/19/19 19:54 150 mls/hr ONETIME ONE Administration Promethazine HCl 25 mg/ Sodium 51 mls @ 200 mls/hr 02/19/19 19:37 02/19/19 19 :41 Chloride IV 02/19/19 19:52 Not Given ONETIME ONE Sodium Chloride 1,000 mls @ 999 mls/hr 02/19/19 21:23 02/19/19 21:25 Normal Saline IV 02/19/19 22:23 999 mls/hr .BOLUS ONE Administration Iopamidol 100 ml 02/19/19 19:46 02/19/19 20:27 Isovue-370 (76%) IV 02/19/19 19:47 86 ml . DIRECTED ONE Administration - Re-Assessments/Exams Free Text/Narrative Re-Assessment/Exam: 02/19/19 19:39: Flat and upright abdomen x-ray reveals nonspecific gas pattern and was unrevealing. His blood tests show an elevated BUN supporting dehydration. His blood sugar was also elevated at 388. His CRP was mildly elevated as well. The magnesium was low at 1.4. He does feel somewhat better after some IV fluids and the Phenergan. I have ordered magnesium 2 g to be given IV and send him for CT of his abdomen and pelvis with IV contrast. 02/19/19 21:15: Patient has received 1 L normal saline as a bolus. And orthostats now show marked orthostatic changes. I will give the patient another liter of normal saline as a bolus. The CT scan of his abdomen and pelvis with IV contrast has been performed after the magnesium was given. I am awaiting results of this. 02/19/19 22:45: CT scan of his abdomen and pelvis showed diffuse colitis from the ascending colon to the rectum. He still has diffuse abdominal pain. His blood pressure is 109 systolic. He still feels somewhat dizzy with standing. He will need admission for ongoing IV fluid hydration and he has been admitted here before for workup of this and I feel at this point he needs gastroenterology services which are not available at this hospital. Therefore he will need to be transferred to a facility with these services available. I discussed this with the patient and he would want me to discuss his case with [facility] in [place]. 02/20/19 00:07: I discussed patient's case with Dr. Chowdhury, hospitalist at [facility] in [place], and she has agreed to accept the patient in transfer. The patient will be given ciprofloxacin 400 mg IV now. I am also checking another blood sugar at this point. We will continue IV fluid hydration was normal saline. The patient will be transferred via ambulance to [facility] for direct admission. Departure - Departure Time of Disposition: 00:20 Disposition: DC/Tfer to Acute Hospital 02 Condition: Fair (Stable) Clinical Impression: Colitis, Volume depletion, Transient hypotension - Discharge Information Referrals: PCP,None [Primary Care Provider] - Forms: ED Department Discharge - My Orders Last 24 Hours: My Active Orders 02/19/19 18:17 Abdomen 2V AP Flat Upright [CR] Stat Sodium Chloride 0.9% [Saline Flush] 10 ml FLUSH ASDIRECTED PRN Peripheral IV Insertion Adult [OM.PC] Routine 02/19/19 18:20 Orthostatic Vital Signs [RC] ASDIRECTED 02/19/19 19:36 Abdomen Pelvis w Cont [CT] Stat 02/19/19 23:59 Ciprofloxacin in D5W [Cipro in D5W 400 MG/200 ML] 400 mg Premix Bag 1 bag IV ONETIME 02/20/19 00:05 Accu Check [Blood Glucose Check, Bedside] [RC] ONETIME - Assessment/Plan Last 24 Hours: My Active Orders 02/19/19 18:17 Abdomen 2V AP Flat Upright [CR] Stat Sodium Chloride 0.9% [Saline Flush] 10 ml FLUSH ASDIRECTED PRN Peripheral IV Insertion Adult [OM.PC] Routine 02/19/19 18:20 Orthostatic Vital Signs [RC] ASDIRECTED 02/19/19 19:36 Abdomen Pelvis w Cont [CT] Stat 02/19/19 23:59 Ciprofloxacin in D5W [Cipro in D5W 400 MG/200 ML] 400 mg Premix Bag 1 bag IV ONETIME 02/20/19 00:05 Accu Check [Blood Glucose Check, Bedside] [RC] ONETIME
[2019-02-19] MEDS ORDERED: Promethazine 25 MG in Sodium Chloride 0.9% 50 ML IV PRN (18:19)
[2019-02-19] MEDS ORDERED: Sodium Chloride 0.9% 1,000 ML IV ONE ×2 (18:19→21:23)
[2019-02-19] MEDS ORDERED: Magnesium Sulfate/Water 2 GM in Premix Bag 1 BAG IV ONE (19:35)
[2019-02-19] MEDS ORDERED: Promethazine 25 MG in Sodium Chloride 0.9% 50 ML IV ONE (19:37)
[2019-02-19] MEDS ORDERED: Iopamidol 755 Mg/ML 100 ML Bottle IV ONE (19:46)
[2019-02-19] MEDS ORDERED: Ciprofloxacin in D5W 400 MG in Premix Bag 1 BAG IV ONE ×2 (23:59)
[2019-02-20] MEDS ORDERED: Sodium Chloride 0.9% 1,000 ML IV SCH (00:15)
[2019-02-20 08:05] VITALS: BP 108/70; PULSE 83
== END 2019-02-20 03:15 ==
LOC: FB.ED 17:35
DX: K52.9 Noninfective gastroenteritis and colitis, unspecified (principal); I95.9 Hypotension, unspecified; E86.9 Volume depletion, unspecified; E11.9 Type 2 diabetes mellitus without complications; F41.9 Anxiety disorder, unspecified; F32.9 Major depressive disorder, single episode, unspecified; Z88.1 Allergy status to other antibiotic agents; Z79.4 Long term (current) use of insulin; Z79.899 Other long term (current) drug therapy
CPT/HCPCS: 36415; 74019; 74177; 80053; 82962; 83735; 85025; 86140; 96361; 96365; 96375; 99285; J2550; J3475; J7030; J7050; Q9967

== ENCOUNTER 2019-07-15 21:38 | Inpatient (IN) | payer MEDICAID ==
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
[2019-07-15] MEDS ORDERED: Sodium Chloride 0.9% 1,000 ML IV ONE ×2 (21:56→23:39)
[2019-07-15] MEDS ORDERED: Ondansetron 4 MG/2 ML SDV IV PRN (23:34)
[2019-07-15] MEDS ORDERED: Acetaminophen 325 MG Tab PO PRN (23:34)
[2019-07-15] MEDS ORDERED: Potassium Chloride 10 MEQ in Premix Bag 1 BAG IV ONE (23:45)
[2019-07-16] MEDS: Insulin Lispro 100 Unit/ML 3 ML KwikPen SUBCUT SCH ×4 (00:26→18:07)
[2019-07-16] MEDS: Morphine 2 MG/ML Syringe IVPUSH PRN ×2 (00:52→06:08)
[2019-07-16] MEDS: Sodium Chloride 0.9% 1,000 ML IV SCH ×4 (01:00→19:22)
[2019-07-16] MEDS ORDERED: Potassium Chloride 10 MEQ in Premix Bag 1 BAG IV ONE ×3 (01:14→03:15)
[2019-07-16] MEDS: Potassium Chloride 100 ML ONE ×2 (01:30→03:20)
[2019-07-16] MEDS: oxyCODONE 5 MG Tab PO PRN ×2 (01:52→08:47)
[2019-07-16] MEDS: Sodium Chloride 0.9% 10 ML Syringe FLUSH PRN ×3 (02:30→14:07)
[2019-07-16] MEDS: Insulin Regular, Human 100 Units/ML 3 ML Vial SUBCUT SCH ×3 (07:36→18:06)
--- NOTE | 2019-07-16 11:20 | PCM.HP.2 ---
H&P History of Present Illness - General Date of Service: 07/16/19 Admit Problem/Dx: Admission Diagnosis/Problem Admission Diagnosis/Problem Cellulitis Source of Information: Patient, EMS Notes Reviewed, Other (Handout from the ER doctor) History Limitations: Reports: No Limitations - History of Present Illness Initial Comments - Free Text/Narative: This a 28-year-old type I diabetic as one week history of left hip pain. It became so severe that he came into the ER. His white count was elevated. He denies fevers, chills or erythema. Scissor swelling in the left hip. Hurts when was his hip. CT was done in the ER that shows cellulitis possible myositis. His blood sugars are usually 200-300 normally. And that's but with the remaining. He denies polyphagia, polydipsia or polyuria. He says he is compliant with his medication but according to the ER doctor family says he is not. 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 He has some psychological history on Lexapro. He denies depression, sadness, suicidal ideation. He states he was seen in the clinic last week and was told it was bursitis. left hip Pain Score (Numeric/FACES): 9 - Related Data Allergies/Adverse Reactions: Allergies Allergy/AdvReac Type Severity Reaction Status Date / Time amoxicillin [Amoxicillin] Allergy Hives Verified 07/16/19 04:33 Home Medications: Home Meds Admelog 2 - 12 units SQ QID 02/05/19 [History] Gabapentin [Neurontin] 900 mg PO BEDTIME 02/05/19 [History] Insulin Glargine,Hum.Rec.Anlog [Basaglar Kwikpen U-100] 30 unit SQ BID 02/05/19 [History] Mirtazapine 15 mg PO BEDTIME 02/05/19 [History] Ondansetron [Zofran ODT] 4 mg PO Q6H PRN #8 tab.dis 02/05/19 [Rx] Escitalopram [Lexapro] 20 mg PO DAILY 02/07/19 [History] Past Medical History Cardiovascular History: Reports: Blood Clots/VTE/DVT, Other (See Below) Other Cardiovascular History: PE last apr 2018 Respiratory History: Reports: PE Gastrointestinal History: Reports: GERD, Other (See Below) Other Gastrointestinal History: barrets esophgeal type of gerd Musculoskeletal History: Reports: Arthritis, Other (See Below) Other Musculoskeletal History: Prior wrist fracture. Right and left knee problems. Osteomyelitis L 5th toe. Neurological History: Reports: Neuropathy, Diabetic Psychiatric History: Reports: Anxiety, Depression, Psych Hospitalization(s), Suicide Attempt, Other (See Below) Other Psychiatric History: Tylenol overdose. Endocrine/Metabolic History: Reports: IDDM Other Endocrine/Metabolic History: diabetic Hematologic History: Reports: Other (See Below) Other Hematologic History: hx blood clots Immunologic History: Reports: None Dermatologic History: Reports: Other (See Below) Other Dermatologic History: dry skin to feet - Infectious Disease History Infectious Disease History: Reports: None - Past Surgical History Respiratory Surgical History: Reports: Other (See Below) Other Respiratory Surgeries/Procedures: stents per groin to remove PEs and stents removed after GI Surgical History: Reports: Colonoscopy, EGD Musculoskeletal Surgical History: Reports: Amputation Social & Family History - Family History Family Medical History: Noncontributory - Tobacco Use Smoking Status *Q: Former Smoker Used Tobacco, but Quit: Yes Month/Year Tobacco Last Used: 2010 Second Hand Smoke Exposure: No - Caffeine Use Caffeine Use: Reports: Coffee, Soda - Recreational Drug Use Recreational Drug Use: No - Living Situation & Occupation Living situation: Reports: Single Occupation: Disabled H&P Review of Systems - Review of Systems: Review Of Systems: See Below General: Reports: No Symptoms HEENT: Reports: No Symptoms Pulmonary: Reports: No Symptoms Cardiovascular: Reports: No Symptoms Gastrointestinal: Reports: No Symptoms Genitourinary: Reports: No Symptoms Musculoskeletal: Reports: Other (Left hip pain when he was here.) Skin: Reports: Other (Skin over the left hip is swollen but no erythema. Pains 10/10) Psychiatric: Reports: No Symptoms Neurological: Reports: No Symptoms Hematologic/Lymphatic: Reports: No Symptoms Immunologic: Reports: No Symptoms Exam - Exam Exam: See Below - Vital Signs Vital Signs: Last Vital Signs Temp 98.1 F 07/16/19 08:00 Pulse 112 H 07/16/19 08:00 Resp 14 07/16/19 08:00 BP 145/82 H 07/16/19 08:00 Pulse Ox 97 07/16/19 08:00 Weight: 146 lb - Exam General: Alert, Oriented, Cooperative HEENT: Hearing Intact, Posterior Pharynx Clear, TMs Clear Neck: Supple, Trachea Midline Lungs: Clear to Auscultation, Normal Respiratory Effort Cardiovascular: Regular Rate, Regular Rhythm. No: Systolic Murmur GI/Abdominal Exam: Normal Bowel Sounds, Soft, Non-Tender, No Organomegaly, No Distention, No Mass Back Exam: Normal Inspection Extremities: No Pedal Edema, Limited Range of Motion (Left hip. Has lots of pain.) Skin: Other (Some notable swelling over the left hip to the upper third of the femur. No erythema but painful to touch. No pitting edema.) Neurological: Normal Speech, Normal Tone Neuro Extensive - Mental Status: Alert, Oriented x3, Normal Cognition, Memory Intact Psychiatric: Alert - Patient Data Lab Results Last 24 hrs: Laboratory Results - last 24 hr 07/15/19 07/15/19 07/15/19 Range/Units 22:05 22:10 22:10 WBC 19.9 H (4.5-12.0) X10-3/uL RBC 4.97 (4.30-5.75) x10(6)uL Hgb 14.8 (13.5-17.8) g/dL Hct 44.3 (30.0-51.3) % MCV 89.0 (80-96) fL MCH 29.8 (27.7-33.6) pg MCHC 33.4 (32.2-35.4) g/dL RDW 12.3 (11.5-15.5) % Plt Count 482 H (125-369) X10(3)uL MPV 7.5 (7.4-10.4) fL Add Manual Diff Yes Neutrophils % (Manual) 87 H (46-82) % Band Neutrophils % 2 (0-6) % Lymphocytes % (Manual) 8 L (13-37) % Monocytes % (Manual) 3 L (4-12) % Sodium 135 (135-145) mmol/L Potassium 3.0 L D (3.5-5.3) mmol/L Chloride 99 L (100-110) mmol/L Carbon Dioxide 13 L (21-32) mmol/L BUN 15 (7-18) mg/dL Creatinine 1.2 (0.70-1.30) mg/dL Est Cr Clr Drug Dosing TNP Estimated GFR (MDRD) > 60 (>60) BUN/Creatinine Ratio 12.5 (9-20) Glucose 261 H D (80-116) mg/dL POC Glucose (80-116) mg/dL Calcium 10.3 H (8.6-10.2) mg/dL Total Bilirubin 0.5 (0.1-1.3) mg/dL AST 14 (5-25) IU/L ALT 18 (12-36) U/L Alkaline Phosphatase 157 H (56-112) IU/L Total Protein 9.1 H (6.0-8.0) g/dL Albumin 2.5 L (3.5-5.2) g/dL Globulin 6.6 g/dL Albumin/Globulin Ratio 0.4 Urine Color Yellow (YELLOW) Urine Appearance Clear (CLEAR) Urine pH 5.0 (5.0-6.5) Ur Specific [place] 1.025 (1.010-1.025) Urine Protein 30 H (NEGATIVE) mg/dL Urine Glucose (UA) >1000 H (NORMAL) mg/dL Urine Ketones 150 H (NEGATIVE) mg/dL Urine Occult Blood Large H (NEGATIVE) Urine Nitrite Negative (NEGATIVE) Urine Bilirubin Negative (NEGATIVE) Urine Urobilinogen Normal (NEGATIVE) mg/dL Ur Leukocyte Esterase Negative (NEGATIVE) Urine RBC 0-5 (0-5) Urine WBC 0-5 (0-5) Ur Squamous Epith Cells Occasional (NS,R,O) Urine Bacteria Few H (NS) 07/16/19 07/16/19 07/16/19 Range/Units 05:49 06:20 06:20 WBC 19.1 H (4.5-12.0) X10-3/uL RBC 4.21 L (4.30-5.75) x10(6)uL Hgb 12.8 L (13.5-17.8) g/dL Hct 37.0 (30.0-51.3) % MCV 87.9 (80-96) fL MCH 30.3 (27.7-33.6) pg MCHC 34.5 (32.2-35.4) g/dL RDW 12.4 (11.5-15.5) % Plt Count 435 H (125-369) X10(3)uL MPV 7.3 L (7.4-10.4) fL Add Manual Diff Yes Neutrophils % (Manual) 75 (46-82) % Band Neutrophils % 3 (0-6) % Lymphocytes % (Manual) 14 (13-37) % Monocytes % (Manual) 8 (4-12) % Sodium 138 (135-145) mmol/L Potassium 3.2 L (3.5-5.3) mmol/L Chloride 107 D (100-110) mmol/L Carbon Dioxide 19 L (21-32) mmol/L BUN 11 (7-18) mg/dL Creatinine 0.7 (0.70-1.30) mg/dL Est Cr Clr Drug Dosing 149.79 Estimated GFR (MDRD) > 60 (>60) BUN/Creatinine Ratio 15.7 (9-20) Glucose 68 L D (80-116) mg/dL POC Glucose 52 L D (80-116) mg/dL Calcium 8.6 (8.6-10.2) mg/dL Total Bilirubin (0.1-1.3) mg/dL AST (5-25) IU/L ALT (12-36) U/L Alkaline Phosphatase (56-112) IU/L Total Protein (6.0-8.0) g/dL Albumin (3.5-5.2) g/dL Globulin g/dL Albumin/Globulin Ratio Urine Color (YELLOW) Urine Appearance (CLEAR) Urine pH (5.0-6.5) Ur Specific [place] (1.010-1.025) Urine Protein (NEGATIVE) mg/dL Urine Glucose (UA) (NORMAL) mg/dL Urine Ketones (NEGATIVE) mg/dL Urine Occult Blood (NEGATIVE) Urine Nitrite (NEGATIVE) Urine Bilirubin (NEGATIVE) Urine Urobilinogen (NEGATIVE) mg/dL Ur Leukocyte Esterase (NEGATIVE) Urine RBC (0-5) Urine WBC (0-5) Ur Squamous Epith Cells (NS,R,O) Urine Bacteria (NS) Result Diagrams: 07/16/19 06:20 07/16/19 06:20 Ben Results Last 24 hrs: Microbiology 07/15/19 22:08 Influenza Type A Antigen Screen - Final Nasal, Unspecified NEGATIVE INFLUENZA A VIRUS AG REFERENCE RANGE: NEGATIVE Influenza Type B Antigen Screen - Final NEGATIVE INFLUENZA B VIRUS AG REFERENCE RANGE: NEGATIVE - Problem List (1) Cellulitis SNOMED Code(s): 419087724 ICD Code: L03.90 - CELLULITIS, UNSPECIFIED Status: Acute Current Visit: Yes (2) Diabetes mellitus type 1 SNOMED Code(s): 67938206 ICD Code: E10.9 - TYPE 1 DIABETES MELLITUS WITHOUT COMPLICATIONS Status: Acute Current Visit: No Onset Date: 04/27/14 (3) Hypokalemia SNOMED Code(s): 42606851 ICD Code: E87.6 - HYPOKALEMIA Status: Acute Current Visit: Yes Problem List Initiated/Reviewed/Updated: Yes Orders Last 24hrs: Active Orders 24 hr Category Date Time Status Patient Status [ADT] Routine ADT 07/15/19 23:34 Active Accu Check [Blood Glucose Check, Bedside] [RC] Q6H Care 07/16/19 00:00 Active Oxygen Therapy [RC] PRN Care 07/15/19 23:34 Active Up ad [place] [RC] ASDIRECTED Care 07/15/19 23:34 Active VTE/DVT Education [RC] Per Unit Routine Care 07/15/19 23:34 Active Vital Signs [RC] 08,12,16,20,00,04 Care 07/15/19 23:34 Active Consistent Carbohydrate Diet [DIET] Diet 07/16/19 Lunch Active Lwr Ext Joint wo Cont Lt [MR] Routine Exams 07/17/19 06:00 Ordered Pelvis wo Cont [CT] Stat Exams 07/15/19 21:56 Taken Acetaminophen [Tylenol] Med 07/15/19 23:34 Active 650 mg PO Q4H PRN Enoxaparin [Lovenox] Med 07/16/19 11:15 Active 40 mg SUBCUT Q24H HYDROmorphone [Dilaudid] Med 07/16/19 11:06 Active 2 mg PO Q3H PRN Insulin Lispro [HumaLOG] Med 07/15/19 23:45 Active See Protocol SUBCUT Q6H Insulin Regular, Human [HumuLIN R] Med 07/16/19 07:30 Active 10 unit SUBCUT BIDAC Levofloxacin/Dextrose 5%-Water [Levaquin in D5W 500 MG/ Med 07/16/19 11:00 Active 100 ML] 500 mg Premix Bag 1 bag IV Q24H Ondansetron [Zofran] Med 07/15/19 23:34 Active 4 mg IV Q4H PRN Sodium Chloride 0.9% [Normal Saline] 1,000 ml Med 07/16/19 01:00 Active IV ASDIRECTED Sodium Chloride 0.9% [Saline Flush] Med 07/16/19 02:37 Active 10 ml FLUSH ASDIRECTED PRN metroNIDAZOLE/Normal Saline [Flagyl 500 MG in NS 100 ML Med 07/16/19 12:00 Active ] 500 mg Premix Bag 1 bag IV Q8H Resuscitation Status Routine Resus Stat 07/15/19 23:34 Ordered Medication Orders Acetaminophen (Tylenol) 650 mg PO Q4H PRN PRN Reason: Pain (Mild 1-3)/fever Enoxaparin Sodium (Lovenox) 40 mg SUBCUT Q24H [facility] Hydromorphone HCl (Dilaudid) 2 mg PO Q3H PRN PRN Reason: Pain Sodium Chloride (Normal Saline) 1,000 mls @ 200 mls/hr IV ASDIRECTED [facility] Last Admin: 07/16/19 10:52 Dose: 200 mls/hr Infusion: 07/16/19 10:51 Dose: 200 mls/hr Admin: 07/16/19 05:51 Dose: 200 mls/hr Infusion: 07/16/19 05:51 Dose: 200 mls/hr Admin: 07/16/19 01:00 Dose: 200 mls/hr Levofloxacin/Dextrose 500 mg/ (Premix) 100 mls @ 100 mls/hr IV Q24H [facility] Metronidazole 500 mg/ Premix 100 mls @ 100 mls/hr IV Q8H [facility] Insulin Human Lispro (Humalog) 0 unit SUBCUT Q6H [facility]; Protocol Last Admin: 07/16/19 06:16 Dose: Admin: 07/16/19 00:26 Dose: 9 units Insulin Human Regular (Humulin R) 10 unit SUBCUT BIDAC [facility] Last Admin: 07/16/19 08:57 Dose: 10 units Ondansetron HCl (Zofran) 4 mg IV Q4H PRN PRN Reason: Nausea/Vomiting Last Admin: 07/16/19 00:52 Dose: 4 mg Sodium Chloride (Saline Flush) 10 ml FLUSH ASDIRECTED PRN PRN Reason: flush Last Admin: 07/16/19 02:30 Dose: 10 ml Assessment/Plan Comment:: 1. Admit to medical. 2. Full code. 3. Lovenox for VTE prophylaxis 4. He was started on vancomycin and I added on levothyroxine metronidazole 5. Review the CT scan and will proceed with MRI of the left hip in the a.m. 6. I stopped the oxycodone and morphine and started a lot of 2 mg every 3 hours when necessary for pain IV. 7. Ice or heat if the patient tolerates the left hip. 8. Restart his regular medications soon as they reconciled. 9. Accu-Cheks 4 times a day with sliding scale 10. Recheck labs in a.m. 11. Diabetic diet. 12. Up ad bradley. - Mortality Measure Prognosis:: Good
[2019-07-16] MEDS: Levofloxacin/Dextrose 5%-Water 500 MG in Premix Bag 1 BAG IV SCH (12:15)
[2019-07-16] MEDS: Enoxaparin 40 MG/0.4 ML Syringe SUBCUT SCH (12:24)
[2019-07-16] MEDS: HYDROmorphone 2 MG Tab PO PRN ×3 (13:33→20:44)
[2019-07-16] MEDS: metroNIDAZOLE/Normal Saline 500 MG in Premix Bag 1 BAG IV SCH ×2 (13:36→20:37)
[2019-07-16] MEDS ORDERED: Ondansetron 4 MG Tab.DIS PO PRN (16:06)
[2019-07-16] MEDS: Potassium Chloride 10 MEQ Tab.ER PO SCH (18:26)
[2019-07-16] MEDS ORDERED: Mirtazapine 15 MG Tab PO SCH ×2 (21:00)
[2019-07-16] MEDS ORDERED: Gabapentin 300 MG Cap PO SCH ×2 (21:00)
[2019-07-16] MEDS: Insulin Glargine,Human Rec. Analog 100 Units/ML 3 ML Pen SUBCUT SCH (21:41)
[2019-07-17] MEDS: HYDROmorphone 2 MG Tab PO PRN ×5 (00:19→16:33)
[2019-07-17] MEDS: metroNIDAZOLE/Normal Saline 500 MG in Premix Bag 1 BAG IV SCH ×2 (03:57→12:23)
[2019-07-17] MEDS: Sodium Chloride 0.9% 1,000 ML IV SCH (03:58)
[2019-07-17] MEDS: Insulin Glargine,Human Rec. Analog 100 Units/ML 3 ML Pen SUBCUT SCH (08:33)
[2019-07-17] MEDS: Insulin Lispro 100 Unit/ML 3 ML KwikPen SUBCUT SCH ×2 (08:34→12:24)
[2019-07-17] MEDS: Potassium Chloride 10 MEQ Tab.ER PO SCH (08:36)
--- NOTE | 2019-07-17 08:56 | PCM.PN ---
- General Info Date of Service: 07/17/19 Admission Dx/Problem (Free Text): Patient is still having pain. Is more tolerable on the Diluadid PO. Still has left hip pain. No erythema, fevers, chills. Hurts to move his left hip. Sugars remain elevated 200-300. - Patient Data Vitals - Most Recent: Last Vital Signs Temp 98.0 F 07/17/19 04:00 Pulse 114 H 07/17/19 04:00 Resp 16 07/17/19 04:00 BP 140/80 07/17/19 04:00 Pulse Ox 95 07/17/19 04:00 Weight - Most Recent: 153 lb 3.2 oz I&O - Last 24 Hours: Intake & Output 07/16/19 07/17/19 07/17/19 22:59 06:59 14:59 Intake Total 990 900 Balance 990 900 Lab Results Last 24 Hours: Laboratory Results - last 24 hr 07/16/19 07/16/19 07/16/19 Range/Units 08:20 12:10 17:28 WBC (4.5-12.0) X10-3/uL RBC (4.30-5.75) x10(6)uL Hgb (13.5-17.8) g/dL Hct (30.0-51.3) % MCV (80-96) fL MCH (27.7-33.6) pg MCHC (32.2-35.4) g/dL RDW (11.5-15.5) % Plt Count (125-369) X10(3)uL MPV (7.4-10.4) fL Neut % (Auto) (46-82) % Lymph % (Auto) (13-37) % [place] % (Auto) (4-12) % Eos % (Auto) (1.0-5.0) % Baso % (Auto) (0-2) % Neut # (Auto) (1.6-8.3) # Lymph # (Auto) (0.6-5.0) # [place] # (Auto) (0.0-1.3) # Eos # (Auto) (0.0-0.8) # Baso # (Auto) (0.0-0.2) # Sodium (135-145) mmol/L Potassium (3.5-5.3) mmol/L Chloride (100-110) mmol/L Carbon Dioxide (21-32) mmol/L BUN (7-18) mg/dL Creatinine (0.70-1.30) mg/dL Est Cr Clr Drug Dosing mL/min Estimated GFR (MDRD) (>60) BUN/Creatinine Ratio (9-20) Glucose (80-116) mg/dL POC Glucose 229 H D 255 H 292 H (80-116) mg/dL Calcium (8.6-10.2) mg/dL Total Bilirubin (0.1-1.3) mg/dL AST (5-25) IU/L ALT (12-36) U/L Alkaline Phosphatase (56-112) IU/L Total Protein (6.0-8.0) g/dL Albumin (3.5-5.2) g/dL Globulin g/dL Albumin/Globulin Ratio 07/16/19 07/17/19 07/17/19 Range/Units 21:39 01:54 06:20 WBC 13.5 H (4.5-12.0) X10-3/uL RBC 4.19 L (4.30-5.75) x10(6)uL Hgb 12.6 L (13.5-17.8) g/dL Hct 36.7 (30.0-51.3) % MCV 87.6 (80-96) fL MCH 30.1 (27.7-33.6) pg MCHC 34.3 (32.2-35.4) g/dL RDW 12.3 (11.5-15.5) % Plt Count 415 H (125-369) X10(3)uL MPV 6.9 L (7.4-10.4) fL Neut % (Auto) 79.2 (46-82) % Lymph % (Auto) 11.6 L (13-37) % [place] % (Auto) 8.2 (4-12) % Eos % (Auto) 1 (1.0-5.0) % Baso % (Auto) 0 (0-2) % Neut # (Auto) 10.7 H (1.6-8.3) # Lymph # (Auto) 1.6 (0.6-5.0) # [place] # (Auto) 1.1 (0.0-1.3) # Eos # (Auto) 0.1 (0.0-0.8) # Baso # (Auto) 0.0 (0.0-0.2) # Sodium (135-145) mmol/L Potassium (3.5-5.3) mmol/L Chloride (100-110) mmol/L Carbon Dioxide (21-32) mmol/L BUN (7-18) mg/dL Creatinine (0.70-1.30) mg/dL Est Cr Clr Drug Dosing mL/min Estimated GFR (MDRD) (>60) BUN/Creatinine Ratio (9-20) Glucose (80-116) mg/dL POC Glucose 295 H 330 H (80-116) mg/dL Calcium (8.6-10.2) mg/dL Total Bilirubin (0.1-1.3) mg/dL AST (5-25) IU/L ALT (12-36) U/L Alkaline Phosphatase (56-112) IU/L Total Protein (6.0-8.0) g/dL Albumin (3.5-5.2) g/dL Globulin g/dL Albumin/Globulin Ratio 07/17/19 07/17/19 Range/Units 06:20 07:20 WBC (4.5-12.0) X10-3/uL RBC (4.30-5.75) x10(6)uL Hgb (13.5-17.8) g/dL Hct (30.0-51.3) % MCV (80-96) fL MCH (27.7-33.6) pg MCHC (32.2-35.4) g/dL RDW (11.5-15.5) % Plt Count (125-369) X10(3)uL MPV (7.4-10.4) fL Neut % (Auto) (46-82) % Lymph % (Auto) (13-37) % [place] % (Auto) (4-12) % Eos % (Auto) (1.0-5.0) % Baso % (Auto) (0-2) % Neut # (Auto) (1.6-8.3) # Lymph # (Auto) (0.6-5.0) # [place] # (Auto) (0.0-1.3) # Eos # (Auto) (0.0-0.8) # Baso # (Auto) (0.0-0.2) # Sodium 137 (135-145) mmol/L Potassium 2.9 L (3.5-5.3) mmol/L Chloride 101 D (100-110) mmol/L Carbon Dioxide 27 (21-32) mmol/L BUN 5 L (7-18) mg/dL Creatinine 0.5 L (0.70-1.30) mg/dL Est Cr Clr Drug Dosing 220.05 mL/min Estimated GFR (MDRD) > 60 (>60) BUN/Creatinine Ratio 10.0 (9-20) Glucose 263 H D (80-116) mg/dL POC Glucose 224 H D (80-116) mg/dL Calcium 8.1 L (8.6-10.2) mg/dL Total Bilirubin 0.3 (0.1-1.3) mg/dL AST 20 D (5-25) IU/L ALT 24 D (12-36) U/L Alkaline Phosphatase 101 (56-112) IU/L Total Protein 6.3 (6.0-8.0) g/dL Albumin 1.7 L* (3.5-5.2) g/dL Globulin 4.6 g/dL Albumin/Globulin Ratio 0.4 Med Orders - Current: Current Medications Acetaminophen (Tylenol) 650 mg PO Q4H PRN PRN Reason: Pain (Mild 1-3)/fever Last Admin: 07/17/19 08:01 Dose: 650 mg Enoxaparin Sodium (Lovenox) 40 mg SUBCUT Q24H [facility] Last Admin: 07/16/19 12:24 Dose: 40 mg Escitalopram Oxalate (Lexapro) 20 mg PO DAILY [facility] Last Admin: 07/17/19 08:36 Dose: 20 mg Gabapentin (Neurontin) 900 mg PO BEDTIME [facility] Last Admin: 07/16/19 21:46 Dose: 900 mg Hydromorphone HCl (Dilaudid) 2 mg PO Q3H PRN PRN Reason: Pain Last Admin: 07/17/19 06:32 Dose: 2 mg Sodium Chloride (Normal Saline) 1,000 mls @ 125 mls/hr IV ASDIRECTED [facility] Last Admin: 07/17/19 03:58 Dose: 125 mls/hr Levofloxacin/Dextrose 500 mg/ (Premix) 100 mls @ 100 mls/hr IV Q24H [facility] Last Admin: 07/16/19 12:15 Dose: 100 mls/hr Metronidazole 500 mg/ Premix 100 mls @ 100 mls/hr IV Q8H [facility] Last Admin: 07/17/19 03:57 Dose: 100 mls/hr Insulin Glargine (Lantus Solostar) 30 units SUBCUT BID [facility] Last Admin: 07/17/19 08:33 Dose: 30 units Insulin Human Lispro (Humalog) 0 unit SUBCUT TIDMEALS [facility]; Protocol Last Admin: 07/17/19 08:34 Dose: 6 units Mirtazapine (Remeron) 15 mg PO BEDTIME [facility] Last Admin: 07/16/19 21:47 Dose: 15 mg Ondansetron HCl (Zofran) 4 mg IV Q4H PRN PRN Reason: Nausea/Vomiting Last Admin: 07/16/19 00:52 Dose: 4 mg Ondansetron HCl (Zofran Odt) 4 mg PO Q6H PRN PRN Reason: Nausea or vomiting Potassium Chloride (Klor-Con 10) 20 meq PO TID [facility] Discontinued Medications Escitalopram Oxalate (Lexapro) 20 mg PO DAILY [facility] Gabapentin (Neurontin) 900 mg PO BEDTIME [facility] Sodium Chloride (Normal Saline) 1,000 mls @ 999 drops/hr IV .BOLUS ONE Stop: 07/16/19 12:56 Last Admin: 07/15/19 22:40 Dose: 999 drops/hr Sodium Chloride (Normal Saline) 1,000 mls @ 999 drops/hr IV .BOLUS ONE Stop: 07/16/19 14:39 Last Admin: 07/15/19 23:57 Dose: 999 drops/hr Vancomycin HCl 1.5 gm/ Sodium (Chloride) 250 mls @ 167 mls/hr IV ONETIME ONE Stop: 07/16/19 01:13 Last Admin: 07/16/19 00:45 Dose: 167 mls/hr Potassium Chloride 10 meq/ (Premix) 100 mls @ 100 mls/hr IV ONETIME ONE Stop: 07/16/19 00:44 Last Admin: 07/16/19 00:15 Dose: 100 mls/hr Potassium Chloride 10 meq/ (Premix) 100 mls @ 100 mls/hr IV ONETIME ONE Stop: 07/16/19 02:13 Last Admin: 07/16/19 01:16 Dose: 100 mls/hr Potassium Chloride (Kcl 10 Meq In Water 100 Ml) Confirm Administered Dose 100 mls @ as directed .ROUTE .STK-MED ONE Stop: 07/16/19 01:14 Last Admin: 07/16/19 03:20 Dose: Not Given Potassium Chloride 10 meq/ (Premix) 100 mls @ 100 mls/hr IV ONETIME ONE Stop: 07/16/19 03:14 Last Admin: 07/16/19 02:30 Dose: 100 mls/hr Potassium Chloride 10 meq/ (Premix) 100 mls @ 100 mls/hr IV ONETIME ONE Stop: 07/16/19 04:14 Last Admin: 07/16/19 03:31 Dose: 100 mls/hr Insulin Human Lispro (Humalog) 0 unit SUBCUT Q6H [facility]; Protocol Last Admin: 07/16/19 18:07 Dose: 9 units Insulin Human Regular (Humulin R) 10 unit SUBCUT BIDAC [facility] Last Admin: 07/16/19 18:06 Dose: 10 units Mirtazapine (Remeron) 15 mg PO BEDTIME [facility] Morphine Sulfate (Morphine) 2 - 4 mg IVPUSH Q4H PRN PRN Reason: Pain Last Admin: 07/16/19 06:08 Dose: 2 mg Oxycodone HCl (Oxycodone) 10 mg PO Q4H PRN PRN Reason: Pain (moderate 4-6) Last Admin: 07/16/19 08:47 Dose: 10 mg Potassium Chloride (Klor-Con 10) 10 meq PO BIDMEALS [facility] Last Admin: 07/17/19 08:36 Dose: 10 meq Sodium Chloride (Saline Flush) 10 ml FLUSH ASDIRECTED PRN PRN Reason: flush Last Admin: 07/16/19 14:07 Dose: 10 ml - Exam General: Alert, Oriented, Cooperative, Other (He looks more comfortable today) Lungs: Normal Respiratory Effort Extremities: Other (Left hip pain with range of motion) Skin: Other (Swelling over the lateral hip that has not changed crit is no erythema. When I touch it he has pain but not as bad as yesterday.) Psy/Mental Status: Alert - Problem List & Annotations (1) Cellulitis SNOMED Code(s): 050528879 Code(s): L03.90 - CELLULITIS, UNSPECIFIED Status: Acute Current Visit: Yes (2) Diabetes mellitus type 1 SNOMED Code(s): 71421596 Code(s): E10.9 - TYPE 1 DIABETES MELLITUS WITHOUT COMPLICATIONS Status: Acute Current Visit: No Onset Date: 04/27/14 (3) Hypokalemia SNOMED Code(s): 14436688 Code(s): E87.6 - HYPOKALEMIA Status: Acute Current Visit: Yes (4) Hypoalbuminemia SNOMED Code(s): 094887617 Code(s): E88.09 - OTH DISORDERS OF PLASMA-PROTEIN METABOLISM, NEC Status: Acute Current Visit: Yes - Problem List Review Problem List Initiated/Reviewed/Updated: Yes - My Orders Last 24 Hours: My Active Orders 07/16/19 11:00 Levofloxacin/Dextrose 5%-Water [Levaquin in D5W 500 MG/100 ML] 500 mg Premix Bag 1 bag IV Q24H 07/16/19 11:06 HYDROmorphone [Dilaudid] 2 mg PO Q3H PRN 07/16/19 11:15 Enoxaparin [Lovenox] 40 mg SUBCUT Q24H 07/16/19 12:00 metroNIDAZOLE/Normal Saline [Flagyl 500 MG in NS 100 ML] 500 mg Premix Bag 1 bag IV Q8H 07/16/19 13:35 CULTURE BLOOD [BC] Routine 07/16/19 13:55 CULTURE BLOOD [BC] Routine 07/16/19 16:06 Ondansetron [Zofran ODT] 4 mg PO Q6H PRN 07/16/19 21:00 Gabapentin [Neurontin] 900 mg PO BEDTIME Insulin Glarg,Human.Rec.Analog [LantUS Solostar] 30 units SUBCUT BID Mirtazapine [Remeron] 15 mg PO BEDTIME 07/16/19 Lunch Consistent Carbohydrate Diet [DIET] 07/17/19 06:00 Lwr Ext Joint wo Cont Lt [MR] Routine 07/17/19 08:47 Convert IV to Saline Lock [OM.PC] Routine 07/17/19 08:48 Consult to Manager Produce [CONS] Routine 07/17/19 09:00 Escitalopram [Lexapro] 20 mg PO DAILY Potassium Chloride [Klor-Con 10] 20 meq PO TID 07/18/19 05:11 CBC WITH AUTO DIFF [HEME] AM COMPREHENSIVE METABOLIC PN,CMP [CHEM] AM - Plan Plan:: 1. Continue pain control Dilaudid by mouth as before. 2. Continue IV antibiotics as before. 3. MRI of the left hip to rule out osteomyelitis 4. Increase potassium to 20 meq 3 times a day by mouth. 5. I change the insulin sinus scale to be more aggressive to his blood sugars under better control. I stopped the twice a day insulin as ordered by the previous doctor. 6. Dietary consult for diabetes and hypoalbuminemia. 7. CBC and Chem-12 in the a.m.
[2019-07-17] MEDS ORDERED: Potassium Chloride 10 MEQ Tab.ER PO ONE (09:00)
[2019-07-17] MEDS ORDERED: Escitalopram 20 MG Tab PO SCH ×2 (09:00)
[2019-07-17] MEDS ORDERED: Gadoteridol 279.3 MG/ML 10 ML SDV IVPUSH ONE (09:19)
[2019-07-17] MEDS: Levofloxacin/Dextrose 5%-Water 500 MG in Premix Bag 1 BAG IV SCH (11:20)
[2019-07-17] MEDS: Enoxaparin 40 MG/0.4 ML Syringe SUBCUT SCH (11:21)
[2019-07-17] MEDS: Insulin Regular, Human 100 Units/ML 3 ML Vial SUBCUT SCH (12:00)
--- NOTE | 2019-07-17 13:13 | PCM.SN ---
- Free Text/Narrative Note: The radiologist called with the MRI report scissors and abscess forming cellulitis going to the fascia and possible necrosis. No osteomyelitis. Should see orthopedic surgery. Call [facility] talk to Dr. Kahn knee agreed to septum. Patient easily transferred by ambulance because he can't sit up for very long because of excruciating pain.
--- NOTE | 2019-07-17 13:17 | PCM.DCSUM1 ---
Discharge Summary - Hospital Course Free Text/Narrative:: Hospital course-patient was in mid and placed on vancomycin. CT scan showed cellulitis couldn't tell if there was an abscess or not. They didn't think there was osteomyelitis in the left hip. When I saw him I added on Levaquin and metronidazole according to up-to-date. Patient is in situ shooting pain and oxycodone and morphine IV were not working so I switched him to Dilaudid 2 mg by mouth when that was helping. Patient's white count was up to 19,000 That it went down to 13,000. His blood sugars running up to 200 to 300s. Had a modest long-acting medicine and a sliding scale. And I made the slight scale more aggressive to get the blood sugars down. MRI was done the left hip. Radiologist called a and said there is cellulitis and appears to be an abscess down into the fascia and possible necrosis. Her orthopedic surgeon was not available so I call Malena and will send him by ambulance. Dr. Pardo excepting. His potassium is low and replaced in by mouth potassium. I'll make him nothing by mouth toe Malena decides what they wanted with him today. Brief History: This a 28-year-old type I diabetic as one week history of left hip pain. It became so severe that he came into the ER. His white count was elevated. He denies fevers, chills or erythema. Scissor swelling in the left hip. Hurts when was his hip. CT was done in the ER that shows cellulitis possible myositis. His blood sugars are usually 200-300 normally. And that's but with the remaining. He denies polyphagia, polydipsia or polyuria. He says he is compliant with his medication but according to the ER doctor family says he is not. 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 He has some psychological history on Lexapro. He denies depression, sadness, suicidal ideation. He states he was seen in the clinic last week and was told it was bursitis. Diagnosis: Stroke: No - Discharge Data Discharge Date: 07/17/19 Discharge Disposition: DC/Tfer to Acute Hospital 02 Condition: Good - Referral to Home Health Primary Care Physician: PCP None - Discharge Diagnosis/Problem(s) (1) Cellulitis SNOMED Code(s): 494678982 ICD Code: L03.90 - CELLULITIS, UNSPECIFIED Status: Acute Current Visit: Yes (2) Diabetes mellitus type 1 SNOMED Code(s): 93406556 ICD Code: E10.9 - TYPE 1 DIABETES MELLITUS WITHOUT COMPLICATIONS Status: Acute Current Visit: No Onset Date: 04/27/14 (3) Hypokalemia SNOMED Code(s): 32766606 ICD Code: E87.6 - HYPOKALEMIA Status: Acute Current Visit: Yes (4) Hypoalbuminemia SNOMED Code(s): 111295167 ICD Code: E88.09 - OTH DISORDERS OF PLASMA-PROTEIN METABOLISM, NEC Status: Acute Current Visit: Yes (5) Abscess SNOMED Code(s): 030102325 ICD Code: L02.91 - CUTANEOUS ABSCESS, UNSPECIFIED Status: Acute Current Visit: No - Patient Summary/Data Consults: Consultations 07/17/19 08:48 Consult to [employer] [CONS] Routine Comment: Physician Instructions: Quantity: Reason for Consult: DM and low albumin 07/17/19 09:44 Consult to Physician [CONS] Routine Consulting Provider: Deon Mcmillan Call Completed to Consulting Physician: Yes - Patient Instructions Diet: NPO Activity: Bedrest Driving: Do Not Drive Showering/Bathing: May Shower Other/Special Instructions: Transfer to [place] per ambulance because excruciating pain. Dr. Llamas excepting - Discharge Plan Home Medications: Home Meds Gabapentin [Neurontin] 900 mg PO BEDTIME 02/05/19 [History] Escitalopram [Lexapro] 20 mg PO DAILY 02/07/19 [History] Acetaminophen [Tylenol] 650 mg PO Q4H PRN tablet 07/17/19 [Rx] Celecoxib [CeleBREX] 100 mg PO BID 07/17/19 [History] Enoxaparin [Lovenox] 40 mg SUBCUT Q24H syringe 07/17/19 [Rx] Escitalopram [Lexapro] 20 mg PO DAILY tablet 07/17/19 [Rx] Gabapentin [Neurontin] 900 mg PO BEDTIME cap 07/17/19 [Rx] HYDROmorphone [Dilaudid] 2 mg PO Q3H PRN tablet 07/17/19 [Rx] Insulin Detemir [Levemir] 30 units SUBCUT BID 07/17/19 [History] Insulin Glarg,Human.Rec.Analog [Lantus Solostar] 30 units SUBCUT BID pen [Rx] Insulin Lispro [Humalog] 0 unit SUBCUT TIDMEALS pen 07/17/19 [Rx] Levofloxacin/Dextrose 5%-Water [Levaquin in D5W 500 MG/100 ML] 500 mg IV Q24H bag 07/17/19 [Rx] Ondansetron [Zofran ODT] 4 mg PO Q6H PRN tab.dis 07/17/19 [Rx] Ondansetron [Zofran] 4 mg IV Q4H PRN vial 07/17/19 [Rx] Potassium Chloride [Klor-Con M20] 20 meq PO TID tab.er 07/17/19 [Rx] metroNIDAZOLE/Normal Saline [Flagyl 500 MG in NS 100 ML] 500 mg IV Q8H bag 10/04 [Rx] Forms: ED Department Discharge Referrals: PCP,None [Primary Care Provider] - - Discharge Summary/Plan Comment DC Time >30 min.: Yes (Coordination of care) - Patient Data Vitals - Most Recent: Last Vital Signs Temp 98.0 F 07/17/19 04:00 Pulse 114 H 07/17/19 04:00 Resp 16 07/17/19 04:00 BP 140/80 07/17/19 04:00 Pulse Ox 95 07/17/19 04:00 Weight - Most Recent: 153 lb 3.2 oz I&O - Last 24 hours: Intake & Output 07/16/19 07/17/19 07/17/19 22:59 06:59 14:59 Intake Total 990 900 Balance 990 900 Lab Results - Last 24 hrs: Laboratory Results - last 24 hr 07/16/19 07/16/19 07/17/19 Range/Units 17:28 21:39 01:54 WBC (4.5-12.0) X10-3/uL RBC (4.30-5.75) x10(6)uL Hgb (13.5-17.8) g/dL Hct (30.0-51.3) % MCV (80-96) fL MCH (27.7-33.6) pg MCHC (32.2-35.4) g/dL RDW (11.5-15.5) % Plt Count (125-369) X10(3)uL MPV (7.4-10.4) fL Neut % (Auto) (46-82) % Lymph % (Auto) (13-37) % [place] % (Auto) (4-12) % Eos % (Auto) (1.0-5.0) % Baso % (Auto) (0-2) % Neut # (Auto) (1.6-8.3) # Lymph # (Auto) (0.6-5.0) # [place] # (Auto) (0.0-1.3) # Eos # (Auto) (0.0-0.8) # Baso # (Auto) (0.0-0.2) # Sodium (135-145) mmol/L Potassium (3.5-5.3) mmol/L Chloride (100-110) mmol/L Carbon Dioxide (21-32) mmol/L BUN (7-18) mg/dL Creatinine (0.70-1.30) mg/dL Est Cr Clr Drug Dosing mL/min Estimated GFR (MDRD) (>60) BUN/Creatinine Ratio (9-20) Glucose (80-116) mg/dL POC Glucose 292 H 295 H 330 H (80-116) mg/dL Calcium (8.6-10.2) mg/dL Total Bilirubin (0.1-1.3) mg/dL AST (5-25) IU/L ALT (12-36) U/L Alkaline Phosphatase (56-112) IU/L Total Protein (6.0-8.0) g/dL Albumin (3.5-5.2) g/dL Globulin g/dL Albumin/Globulin Ratio 07/17/19 07/17/19 07/17/19 Range/Units 06:20 06:20 07:20 WBC 13.5 H (4.5-12.0) X10-3/uL RBC 4.19 L (4.30-5.75) x10(6)uL Hgb 12.6 L (13.5-17.8) g/dL Hct 36.7 (30.0-51.3) % MCV 87.6 (80-96) fL MCH 30.1 (27.7-33.6) pg MCHC 34.3 (32.2-35.4) g/dL RDW 12.3 (11.5-15.5) % Plt Count 415 H (125-369) X10(3)uL MPV 6.9 L (7.4-10.4) fL Neut % (Auto) 79.2 (46-82) % Lymph % (Auto) 11.6 L (13-37) % [place] % (Auto) 8.2 (4-12) % Eos % (Auto) 1 (1.0-5.0) % Baso % (Auto) 0 (0-2) % Neut # (Auto) 10.7 H (1.6-8.3) # Lymph # (Auto) 1.6 (0.6-5.0) # [place] # (Auto) 1.1 (0.0-1.3) # Eos # (Auto) 0.1 (0.0-0.8) # Baso # (Auto) 0.0 (0.0-0.2) # Sodium 137 (135-145) mmol/L Potassium 2.9 L (3.5-5.3) mmol/L Chloride 101 D (100-110) mmol/L Carbon Dioxide 27 (21-32) mmol/L BUN 5 L (7-18) mg/dL Creatinine 0.5 L (0.70-1.30) mg/dL Est Cr Clr Drug Dosing 220.05 mL/min Estimated GFR (MDRD) > 60 (>60) BUN/Creatinine Ratio 10.0 (9-20) Glucose 263 H D (80-116) mg/dL POC Glucose 224 H D (80-116) mg/dL Calcium 8.1 L (8.6-10.2) mg/dL Total Bilirubin 0.3 (0.1-1.3) mg/dL AST 20 D (5-25) IU/L ALT 24 D (12-36) U/L Alkaline Phosphatase 101 (56-112) IU/L Total Protein 6.3 (6.0-8.0) g/dL Albumin 1.7 L* (3.5-5.2) g/dL Globulin 4.6 g/dL Albumin/Globulin Ratio 0.4 07/17/19 Range/Units 11:46 WBC (4.5-12.0) X10-3/uL RBC (4.30-5.75) x10(6)uL Hgb (13.5-17.8) g/dL Hct (30.0-51.3) % MCV (80-96) fL MCH (27.7-33.6) pg MCHC (32.2-35.4) g/dL RDW (11.5-15.5) % Plt Count (125-369) X10(3)uL MPV (7.4-10.4) fL Neut % (Auto) (46-82) % Lymph % (Auto) (13-37) % [place] % (Auto) (4-12) % Eos % (Auto) (1.0-5.0) % Baso % (Auto) (0-2) % Neut # (Auto) (1.6-8.3) # Lymph # (Auto) (0.6-5.0) # [place] # (Auto) (0.0-1.3) # Eos # (Auto) (0.0-0.8) # Baso # (Auto) (0.0-0.2) # Sodium (135-145) mmol/L Potassium (3.5-5.3) mmol/L Chloride (100-110) mmol/L Carbon Dioxide (21-32) mmol/L BUN (7-18) mg/dL Creatinine (0.70-1.30) mg/dL Est Cr Clr Drug Dosing mL/min Estimated GFR (MDRD) (>60) BUN/Creatinine Ratio (9-20) Glucose (80-116) mg/dL POC Glucose 272 H (80-116) mg/dL Calcium (8.6-10.2) mg/dL Total Bilirubin (0.1-1.3) mg/dL AST (5-25) IU/L ALT (12-36) U/L Alkaline Phosphatase (56-112) IU/L Total Protein (6.0-8.0) g/dL Albumin (3.5-5.2) g/dL Globulin g/dL Albumin/Globulin Ratio Med Orders - Current: Current Medications Acetaminophen (Tylenol) 650 mg PO Q4H PRN PRN Reason: Pain (Mild 1-3)/fever Last Admin: 07/17/19 08:01 Dose: 650 mg Enoxaparin Sodium (Lovenox) 40 mg SUBCUT Q24H [facility] Last Admin: 07/17/19 11:21 Dose: 40 mg Escitalopram Oxalate (Lexapro) 20 mg PO DAILY [facility] Last Admin: 07/17/19 08:36 Dose: 20 mg Gabapentin (Neurontin) 900 mg PO BEDTIME [facility] Last Admin: 07/16/19 21:46 Dose: 900 mg Hydromorphone HCl (Dilaudid) 2 mg PO Q3H PRN PRN Reason: Pain Last Admin: 07/17/19 09:54 Dose: 2 mg Levofloxacin/Dextrose 500 mg/ (Premix) 100 mls @ 100 mls/hr IV Q24H [facility] Last Admin: 07/17/19 11:20 Dose: 100 mls/hr Metronidazole 500 mg/ Premix 100 mls @ 100 mls/hr IV Q8H [facility] Last Admin: 07/17/19 12:23 Dose: 100 mls/hr Insulin Glargine (Lantus Solostar) 30 units SUBCUT BID [facility] Last Admin: 07/17/19 08:33 Dose: 30 units Insulin Human Lispro (Humalog) 0 unit SUBCUT TIDMEALS [facility]; Protocol Last Admin: 07/17/19 12:24 Dose: 15 units Ondansetron HCl (Zofran) 4 mg IV Q4H PRN PRN Reason: Nausea/Vomiting Last Admin: 07/16/19 00:52 Dose: 4 mg Ondansetron HCl (Zofran Odt) 4 mg PO Q6H PRN PRN Reason: Nausea or vomiting Last Admin: 07/17/19 11:50 Dose: 4 mg Potassium Chloride (Klor-Con M20) 20 meq PO TID [facility] Discontinued Medications Escitalopram Oxalate (Lexapro) 20 mg PO DAILY [facility] Gabapentin (Neurontin) 900 mg PO BEDTIME [facility] Gadoteridol (Prohance) 10 ml IVPUSH ONETIME ONE Stop: 07/17/19 09:20 Last Admin: 07/17/19 09:34 Dose: 10 ml Sodium Chloride (Normal Saline) 1,000 mls @ 999 drops/hr IV .BOLUS ONE Stop: 07/16/19 12:56 Last Admin: 07/15/19 22:40 Dose: 999 drops/hr Sodium Chloride (Normal Saline) 1,000 mls @ 999 drops/hr IV .BOLUS ONE Stop: 07/16/19 14:39 Last Admin: 07/15/19 23:57 Dose: 999 drops/hr Vancomycin HCl 1.5 gm/ Sodium (Chloride) 250 mls @ 167 mls/hr IV ONETIME ONE Stop: 07/16/19 01:13 Last Admin: 07/16/19 00:45 Dose: 167 mls/hr Potassium Chloride 10 meq/ (Premix) 100 mls @ 100 mls/hr IV ONETIME ONE Stop: 07/16/19 00:44 Last Admin: 07/16/19 00:15 Dose: 100 mls/hr Sodium Chloride (Normal Saline) 1,000 mls @ 125 mls/hr IV ASDIRECTED [facility] Last Admin: 07/17/19 03:58 Dose: 125 mls/hr Potassium Chloride 10 meq/ (Premix) 100 mls @ 100 mls/hr IV ONETIME ONE Stop: 07/16/19 02:13 Last Admin: 07/16/19 01:16 Dose: 100 mls/hr Potassium Chloride (Kcl 10 Meq In Water 100 Ml) Confirm Administered Dose 100 mls @ as directed .ROUTE .STK-MED ONE Stop: 07/16/19 01:14 Last Admin: 07/16/19 03:20 Dose: Not Given Potassium Chloride 10 meq/ (Premix) 100 mls @ 100 mls/hr IV ONETIME ONE Stop: 07/16/19 03:14 Last Admin: 07/16/19 02:30 Dose: 100 mls/hr Potassium Chloride 10 meq/ (Premix) 100 mls @ 100 mls/hr IV ONETIME ONE Stop: 07/16/19 04:14 Last Admin: 07/16/19 03:31 Dose: 100 mls/hr Insulin Human Lispro (Humalog) 0 unit SUBCUT Q6H [facility]; Protocol Last Admin: 07/16/19 18:07 Dose: 9 units Insulin Human Regular (Humulin R) 10 unit SUBCUT BIDAC [facility] Last Admin: 07/17/19 12:00 Dose: Not Given Mirtazapine (Remeron) 15 mg PO BEDTIME [facility] Last Admin: 07/16/19 21:47 Dose: 15 mg Mirtazapine (Remeron) 15 mg PO BEDTIME [facility] Morphine Sulfate (Morphine) 2 - 4 mg IVPUSH Q4H PRN PRN Reason: Pain Last Admin: 07/16/19 06:08 Dose: 2 mg Oxycodone HCl (Oxycodone) 10 mg PO Q4H PRN PRN Reason: Pain (moderate 4-6) Last Admin: 07/16/19 08:47 Dose: 10 mg Potassium Chloride (Klor-Con 10) 10 meq PO BIDMEALS [facility] Last Admin: 07/17/19 08:36 Dose: 10 meq Potassium Chloride (Klor-Con 10) 10 meq PO ONETIME ONE Stop: 07/17/19 09:01 Last Admin: 07/17/19 09:54 Dose: 10 meq Sodium Chloride (Saline Flush) 10 ml FLUSH ASDIRECTED PRN PRN Reason: flush Last Admin: 07/16/19 14:07 Dose: 10 ml
[2019-07-17 13:43] VITALS: BP 136/89; PULSE 113
[2019-07-17] MEDS ORDERED: Potassium Chloride 20 MEQ Tab.ER PO SCH (14:00)
== END 2019-07-17 16:35 | DRG 638 ==
LOC: FB.ED 21:38 → FB.MS 23:44
PROVIDERS: ADMIT Family Medicine; ATTEND Family Medicine
DX: E10.628 Type 1 diabetes mellitus with other skin complications (principal); L03.116 Cellulitis of left lower limb; M87.9 Osteonecrosis, unspecified; L02.416 Cutaneous abscess of left lower limb; E87.6 Hypokalemia; E88.09 Other disorders of plasma-protein metabolism, not elsewhere classified; K21.9 Gastro-esophageal reflux disease without esophagitis; M19.90 Unspecified osteoarthritis, unspecified site; F41.9 Anxiety disorder, unspecified; E10.42 Type 1 diabetes mellitus with diabetic polyneuropathy; F32.9 Major depressive disorder, single episode, unspecified; Z79.899 Other long term (current) drug therapy; Z88.0 Allergy status to penicillin; Z86.718 Personal history of other venous thrombosis and embolism; Z68.22 Body mass index [BMI] 22.0-22.9, adult
CPT/HCPCS: 36415; 72192; 73723-LT; 80048; 80053; 81001; 82962; 85025; 87040; 87804; 87804-59; 96360; 99285-25; A9270-GY; A9579; J1650; J1815; J1815-GY; J1956; J2270; J2405; J3370; J3480; J3490; J7030; J7050

== ENCOUNTER 2019-10-01 19:40 | Emergency (ER) | payer MEDICAID ==
--- NOTE | 2019-10-01 19:52 | EDM.PDOC ---
ED HPI GENERAL MEDICAL PROBLEM - General Stated Complaint: LEFT ARM NUMB Time Seen by Provider: 10/01/19 19:50 Source of Information: Reports: Patient History Limitations: Reports: No Limitations - History of Present Illness INITIAL COMMENTS - FREE TEXT/NARRATIVE: 28-year-old male who reports that he has not felt well all day. He has been eating okay but has not really been eating that well. He has had no fevers or chills. No vomiting. At approximately 3:30 PM, he was taking shower and noticed a lump at the lower aspect of his median sternotomy incision stated and pus came out. There was some tenderness associated with this. He reports that it was mild. He also had pain over his left chest but this is a recurring pain and is worse with movement and with palpation. The pain is sharp. It is moderate and appears to be somewhat worse than previous. An approximate 6 PM he was riding in a car with his mother noticed acute onset of numbness from his left shoulder down to his fingers and feelings of discoordination in his left hand with some feeling of weakness in the arm. He also noticed that the vision in his left eye which is already decreased to be worse in that he was able to see shapes with the left eye earlier and now seem to be dark mostly in the left eye. He also had pain in his left arm and shoulder with movement. The symptoms have been persisting and because he had the redness and pus coming from the wound he thought that the numbness in his arm must be related to the infection and he was primarily concerned about that when he arrived. 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 He is very anxious about this because the source of the massive PE may have partly been from a PICC line that he had in place related to treatment of an infection. There are no other associated signs or symptoms. There are no other modifying factors. Onset: Today (6.) Duration: Constant Location: Reports: Chest, Upper Extremity, Left Quality: Reports: Sharp Severity: Moderate Improves with: Reports: Rest Worsens with: Reports: Breathing, Other (Palpation), Movement Context: Reports: Other (As above) Associated Symptoms: Reports: Chest Pain, Loss of Appetite, Nausea/Vomiting, Shortness of Breath Treatments [employer]: Reports: Other (see below) (Nothing) - Related Data Allergies Allergy/AdvReac Type Severity Reaction Status Date / Time amoxicillin [Amoxicillin] Allergy Hives Verified 10/01/19 21:01 Home Meds: Home Meds Gabapentin [Neurontin] 600 mg PO TID 02/05/19 [History] Acetaminophen [Tylenol] 650 mg PO Q4H PRN tablet 07/17/19 [Rx] Ondansetron [Zofran ODT] 4 mg PO Q6H PRN tab.dis 07/17/19 [Rx] Insulin Aspart [NovoLOG] 0 unit SQ WITHMEALSANDBED 10/01/19 [History] Insulin Glarg,Human.Rec.Analog [Lantus Solostar] 25 units SUBCUT DAILY 10/01/19 [History] Rivaroxaban [Xarelto] 20 mg PO DAILY 10/01/19 [History] Past Medical History HEENT History: Reports: Impaired Vision, Other (See Below) (Diabetic retinopathy ) Cardiovascular History: Reports: Blood Clots/VTE/DVT Respiratory History: Reports: PE Gastrointestinal History: Reports: GERD, Other (See Below) Other Gastrointestinal History: barrets esophgeal type of gerd Musculoskeletal History: Reports: Arthritis, Other (See Below) Other Musculoskeletal History: Prior wrist fracture. Right and left knee problems. Osteomyelitis L 5th toe. Neurological History: Reports: Neuropathy, Diabetic Psychiatric History: Reports: Anxiety, Depression, Psych Hospitalization(s), Suicide Attempt, Other (See Below) Other Psychiatric History: Tylenol overdose. Endocrine/Metabolic History: Reports: IDDM Other Endocrine/Metabolic History: diabetic Hematologic History: Reports: Anticoagulation Therapy (On Xarelto) Immunologic History: Reports: None - Infectious Disease History Infectious Disease History: Reports: None - Past Surgical History Cardiovascular Surgical History: Reports: Other (See Below) (Median sternotomy to remove saddle pulmonary embolus) Respiratory Surgical History: Reports: Other (See Below) Other Respiratory Surgeries/Procedures: stents per groin to remove PEs and stents removed after GI Surgical History: Reports: Colonoscopy, EGD Musculoskeletal Surgical History: Reports: Amputation (Toes) Social & Family History - Tobacco Use Smoking Status *Q: Never Smoker - Caffeine Use Caffeine Use: Reports: Coffee, Soda - Alcohol Use Alcohol Use History: No Alcohol Use Comment: Has used in the past but currently no alcohol use - Living Situation & Occupation Living situation: Reports: Single Occupation: Disabled Social History Comment: He is here with his mother. ED ROS GENERAL - Review of Systems Review Of Systems: See Below Constitutional: Reports: Malaise, Weakness, Fatigue, Decreased Appetite HEENT: Reports: Vision Change Respiratory: Reports: Shortness of Breath, Pleuritic Chest Pain Cardiovascular: Reports: Chest Pain, Lightheadedness GI/Abdominal: Reports: Nausea. Denies: Vomiting : Reports: No Symptoms Musculoskeletal: Reports: Shoulder Pain Skin: Reports: No Symptoms Neurological: Reports: Numbness (Left arm), Paresthesia (Left arm), Weakness ( Left arm) Psychiatric: Reports: Anxiety Hematologic/Lymphatic: Reports: No Symptoms Immunologic: Reports: No Symptoms ED EXAM, GENERAL - Physical Exam Exam: See Below Exam Limited By: No Limitations General Appearance: Alert, Anxious, Moderate Distress, Thin Eye Exam: Bilateral Eye: EOMI, Normal Inspection Ears: Normal External Exam, Hearing Grossly Normal Ear Exam: Bilateral Ear: Auricle Normal Nose: Normal Inspection, Normal Mucosa, No Blood Throat/Mouth: Normal Inspection, Normal Lips, Normal Oropharynx, Normal Voice, No Airway Compromise Head: Atraumatic, Normocephalic Neck: Normal Inspection, Supple, Non-Tender, Full Range of Motion Respiratory/Chest: No Respiratory Distress, Lungs Clear, Normal Breath Sounds, No Accessory Muscle Use, Other (Tender over central chest. Median sternotomy incision with the lower incision having areas of redness with slight purulence from the lower aspect of this incision) Cardiovascular: Normal Peripheral Pulses, No Edema, No JVD, Tachycardia Peripheral Pulses: 1+: Radial (L), Radial (R) GI/Abdominal: Normal Bowel Sounds, Soft, Non-Tender, No Mass Back Exam: Normal Inspection Extremities: Normal Inspection, Normal Range of Motion, Non-Tender, No Pedal Edema, Normal Capillary Refill (Capillary refill appears to be symmetric in both hands.) Neurological: Alert, Oriented, Normal Cognition, Other (Environmental Safety Specialist is about half in the left hand versus the right hand. There is a pronator drift on the left.) Psychiatric: Anxious Skin Exam: Warm, Dry, Intact, Normal Color, No Rash EKG INTERPRETATION EKG Date: 10/01/19 Time: 20:29 Rhythm: Other (Sinus tachycardia) Rate (Beats/Min): 116 [place]: Normal P-Wave: Present QRS: Normal ST-T: Other (Nonspecific ST-T abnormality) QT: Normal Comparison: Change From Previous EKG (. An EKG performed on 02/05/2019, nonspecific ST-T changes are new.) Course - Vital Signs Last Recorded V/S: Last Vital Signs Temp 35.7 C L 10/01/19 19:45 Pulse Resp BP Pulse Ox - Orders/Labs/Meds Orders: Active Orders 24 hr Category Date Time Status EKG Documentation Completion [RC] ASDIRECTED Care 10/01/19 20:10 Active Head wo Cont [CT] Stat Exams 10/01/19 20:08 Taken Sodium Chloride 0.9% [Normal Saline] 1,000 ml Med 10/01/19 20:15 Active IV ASDIRECTED Sodium Chloride 0.9% [Saline Flush] Med 10/01/19 20:09 Active 10 ml FLUSH ASDIRECTED PRN Peripheral IV Insertion Adult [OM.PC] Routine Oth 10/01/19 20:09 Ordered EKG 12 Lead [EK] Routine Ther 10/01/19 20:09 Ordered Medication Orders Sodium Chloride (Normal Saline) 1,000 mls @ 125 mls/hr IV ASDIRECTED HARMEET Sodium Chloride (Saline Flush) 10 ml FLUSH ASDIRECTED PRN PRN Reason: Keep Vein Open Labs: Laboratory Tests 10/01/19 10/01/19 10/01/19 Range/Units 20:40 20:40 20:40 WBC 10.8 (4.5-12.0) X10-3/uL RBC 5.21 (4.30-5.75) x10(6)uL Hgb 14.0 (13.5-17.8) g/dL Hct 42.6 (30.0-51.3) % MCV 81.8 (80-96) fL MCH 26.8 L (27.7-33.6) pg MCHC 32.8 (32.2-35.4) g/dL RDW 14.4 (11.5-15.5) % Plt Count 449 H (125-369) X10(3)uL MPV 7.3 L (7.4-10.4) fL Neut % (Auto) 61.2 (46-82) % Lymph % (Auto) 26.6 (13-37) % [place] % (Auto) 5.0 (4-12) % Eos % (Auto) 7 H (1.0-5.0) % Baso % (Auto) 1 (0-2) % Neut # (Auto) 6.6 (1.6-8.3) # Lymph # (Auto) 2.9 (0.6-5.0) # [place] # (Auto) 0.5 (0.0-1.3) # Eos # (Auto) 0.7 (0.0-0.8) # Baso # (Auto) 0.1 (0.0-0.2) # PT 10.4 (8.7-11.1) INR 1.07 (0.89-1.13) APTT 23.1 L (24.4-33.2) SECONDS Sodium 145 (135-145) mmol/L Potassium 3.7 (3.5-5.3) mmol/L Chloride 101 (100-110) mmol/L Carbon Dioxide 32 (21-32) mmol/L BUN 19 H D (7-18) mg/dL Creatinine 0.7 (0.70-1.30) mg/dL Est Cr Clr Drug Dosing TNP Estimated GFR (MDRD) > 60 (>60) BUN/Creatinine Ratio 27.1 H (9-20) Glucose 132 H D (80-116) mg/dL Calcium 10.3 H D (8.6-10.2) mg/dL Magnesium 1.6 L (1.8-2.5) mg/dL Total Bilirubin 0.3 (0.1-1.3) mg/dL AST 16 D (5-25) IU/L ALT 32 D (12-36) U/L Alkaline Phosphatase 126 H (56-112) IU/L Total Protein 10.0 H (6.0-8.0) g/dL Albumin 4.2 (3.5-5.2) g/dL Globulin 5.8 g/dL Albumin/Globulin Ratio 0.7 Meds: Medications Generic Name Dose Route Start Last Admin Trade Name Freq PRN Reason Stop Dose Admin Sodium Chloride 1,000 mls @ 125 mls/hr 10/01/19 20:15 Normal Saline IV ASDIRECTED HARMEET Sodium Chloride 10 ml 10/01/19 20:09 Saline Flush FLUSH ASDIRECTED PRN Keep Vein Open - Radiology Interpretation Free Text/Narrative:: CT scan of the head showed an unremarkable noncontrast head CT or the radiologist. - Re-Assessments/Exams Free Text/Narrative Re-Assessment/Exam: 10/01/19 20:40: I discussed patient's case with Dr. Molina, stroke neurologist at [facility] in [place], and he felt that this could be an acute stroke but there are other things that he could be as well (I agree with him) and then he would need additional workup which would include CTA of his head and possibly even his chest as well as an MRI. He does not meet criteria for lytics because he is on Xarelto and with his NIH stroke scale score of 3, he would most probably not be a candidate for interventional. However, he will need further testing and he will need transfer to [place] for that testing and further evaluation for treatment. 10/01/19 20:50: I discussed this with the patient and his mother. I have answered their questions. He and his mother are in agreement with plans for transfer. The patient will be transferred via ALS ambulance service to [facility] in [place]. 10/01/19 21:15: The screw is here and will be transferring the patient. The patient has remained neurologically stable. His pulse is still in the 110-120 range. Labs are all back and are relatively reassuring. Troponin is pending at this point. Departure - Departure Time of Disposition: 21:20 Disposition: DC/Tfer to Acute Hospital 02 Condition: Critical Clinical Impression: Stroke-like symptoms, Left arm weakness, Left arm numbness, Decreased vision of left eye, Sinus tachycardia - Discharge Information Referrals: David Aburto MD [Primary Care Provider] - Critical Care Note - Critical Care Note Total Time (mins): 45 Comments: Total critical care time spent with the patient was 45 minutes. Sepsis Event Note - Focused Exam Vital Signs: Vital Signs Temp 10/01/19 19:45 35.7 C L Date Exam was Performed: 10/01/19 Time Exam was Performed: 21:23 - My Orders Last 24 Hours: My Active Orders 10/01/19 20:08 Head wo Cont [CT] Stat 10/01/19 20:09 Sodium Chloride 0.9% [Saline Flush] 10 ml FLUSH ASDIRECTED PRN Peripheral IV Insertion Adult [OM.PC] Routine EKG 12 Lead [EK] Routine 10/01/19 20:10 EKG Documentation Completion [RC] ASDIRECTED 10/01/19 20:15 Sodium Chloride 0.9% [Normal Saline] 1,000 ml IV ASDIRECTED - Assessment/Plan Last 24 Hours: My Active Orders 10/01/19 20:08 Head wo Cont [CT] Stat 10/01/19 20:09 Sodium Chloride 0.9% [Saline Flush] 10 ml FLUSH ASDIRECTED PRN Peripheral IV Insertion Adult [OM.PC] Routine EKG 12 Lead [EK] Routine 10/01/19 20:10 EKG Documentation Completion [RC] ASDIRECTED 10/01/19 20:15 Sodium Chloride 0.9% [Normal Saline] 1,000 ml IV ASDIRECTED
[2019-10-01] MEDS ORDERED: Sodium Chloride 0.9% 10 ML Syringe FLUSH PRN (20:09)
[2019-10-01] MEDS ORDERED: Sodium Chloride 0.9% 1,000 ML IV SCH (20:15)
[2019-10-02 10:02] VITALS: BP 127/89; PULSE 99
== END 2019-10-01 21:20 ==
LOC: FB.ED 19:40
DX: R53.1 Weakness (principal); R20.0 Anesthesia of skin; H54.7 Unspecified visual loss; R00.0 Tachycardia, unspecified; E11.40 Type 2 diabetes mellitus with diabetic neuropathy, unspecified; I82.409 Acute embolism and thrombosis of unspecified deep veins of unspecified lower extremity; Z88.0 Allergy status to penicillin; Z79.02 Long term (current) use of antithrombotics/antiplatelets
CPT/HCPCS: 36415; 70450; 80053; 82962; 83735; 84484; 85025; 85610; 85730; 93005; 96360; 99285; J7030